=== PATIENT | female | born 1985 | race Caucasian/White ===

== ENCOUNTER 2017-10-28 11:06 | Emergency (ER) | payer OTHER ==
--- OUTSIDE RECORDS SUMMARY | 2017-10-28 11:08 | XMS REPORT | Clinical Summary ---
:1985 Author Organization [facility] Address [address] [place] [address] Care Team Providers Name Role Phone Krupa Steven DO Primary Care Provider Allergies Active Allergy Reactions Severity Noted Date Comments Propoxyphene Other (See Comments) 11/06/2016 Causes flu like N-Acetaminophen symptoms Current Medications Prescription Sig. Disp. Refills Start Date End Date Status omeprazole (PriLOSEC) 10 Take 10 mg by Active MG capsule mouth daily. Active Problems Problem Noted Date Epigastric pain 11/09/2016 Last Assessment & Plan: I spoke to Dr. gutierres her project development manager who is also unclear for the etiology of the patient's abdominal pain. I will order an ultrasound as well as an upper GI and a urine drug screen due to her history. Weight gain following gastric bypass surgery 11/06/2016 Last Assessment & Plan: I spoke to Dr. Gutierres, her project development manager, who is also unsure for the etiology of the patient's abdominal pain. I will obtain an upper GI study as well as an abdominal ultrasound. I will also obtain a urine drug screen. The patient will be contacted once these results come back. Encounters Date Type Specialty Care Team Description 11/14/2016 Telephone General Surgery Norma Carey PA 11/11/2016 Lab Lab Zeyad Aranda MD Weight gain following gastric bypass surgery 11/11/2016 Hospital Encounter Radiology Zeyad Aranda MD Weight gain following gastric bypass surgery 11/06/2016 Office Visit General Surgery Zeyad Aranda MD Weight gain following gastric bypass surgery (Primary Dx); Epigastric pain after 10/27/2016 Family History Medical History Relation Name Comments Mental illness Brother Obesity Brother Mental illness Brother Mental illness Daughter Hernia Father Hypertension Father Prostate cancer Father COPD Mother Carpal tunnel syndrome Mother Heart disease Mother Hypertension Mother Mental illness Mother Obesity Mother Gallbladder disease Sister Relation Name Status Comments Brother Alive Brother Alive Daughter Alive Daughter Alive Father Alive Maternal Grandfather Alive Maternal Grandmother Mother Alive Paternal Grandfather Paternal Grandmother Sister Alive Son Alive Social History Tobacco Use Types Packs/Day Years Used Date Current Every Day Smoker Cigarettes 1 Smokeless Tobacco: Never Used Alcohol Use Drinks/Week oz/Week Comments No Sex Assigned at Date Recorded Not on file Last Filed Vital Signs Vital Sign Reading Time Taken Blood Pressure 177/102 11/06/2016 10:29 AM CDT Pulse 78 11/06/2016 10:29 AM CDT Temperature 36.4 C (97.6 F) 11/06/2016 10:29 AM CDT Respiratory Rate - - Oxygen Saturation - - Inhaled Oxygen Concentration - - Weight 93.8 kg (206 lb 11.2 oz) 11/06/2016 10:29 AM CDT Height 160 cm (5' 3") 11/06/2016 10:29 AM CDT Body Mass Index 36.62 11/06/2016 10:29 AM CDT Plan of Treatment Health Maintenance Due Date Last Done Comments PAP SMEAR 2004 INFLUENZA VACCINE 02/17/2018 Results FL UGI w Air Gluc HD Barium (11/11/2016 11:41 AM) Specimen Performing Laboratory [facility] [address] [place] [address] Narrative EXAMINATION:FL UGI W AIR GLUC HD BARIUM CLINICAL HISTORY:weight regain after sleeve gastrectomy COMPARISON:None. TECHNIQUE:UPPER GI SERIES was performed with thickened liquid barium FLUOROSCOPIC TIME:1.7 minutes and 14 spot fluoroscopic images IMPRESSION: 1.Esophagus:Esophagus is normal in course, caliber, contour, and contractility. No mucosal abnormality or fold thickening. 2.Gastroesophageal junction:Small sliding hiatus hernia. No gastroesophageal reflux identified. 3.Stomach:Normal appearance of the stomach status-post gastric sleeve resection with relative narrowing of the proximal and mid stomach and widening of the gastric antrum.. Stomach is normal in distensible. No gastroparesis or outlet obstruction. 4.Duodenum:Bulb and sweep are normal. The duodenal-jejunal junction is in the normal expected position. [facility]-[id number] Procedure Note Interface, Radiology Results Incoming - 11/11/2016 12:22 PM CDT EXAMINATION: FL UGI W AIR GLUC HD BARIUM CLINICAL HISTORY: weight regain after sleeve gastrectomy COMPARISON: None. TECHNIQUE: UPPER GI SERIES was performed with thickened liquid barium FLUOROSCOPIC TIME: 1.7 minutes and 14 spot fluoroscopic images IMPRESSION: 1. Esophagus: Esophagus is normal in course, caliber, contour, and contractility. No mucosal abnormality or fold thickening. 2. Gastroesophageal junction: Small sliding hiatus hernia. No gastroesophageal reflux identified. 3. Stomach: Normal appearance of the stomach status-post gastric sleeve resection with relative narrowing of the proximal and mid stomach and widening of the gastric antrum.. Stomach is normal in distensible. No gastroparesis or outlet obstruction. 4. Duodenum: Bulb and sweep are normal. The duodenal-jejunal junction is in the normal expected position. [facility]-[id number] Urine drugs of abuse screen (11/11/2016 3:14 AM) Component Value Ref Range Amphetamine screen, urine Negative Barbiturate screen, urine Negative Benzodiazepine screen, urine Negative Cannabinoid screen, urine Negative Cocaine screen, urine Negative Methadone metabolite (EDDP), urine Negative Opiates screen, urine Negative Oxycodone screen, urine Negative Phencyclidine screen, urine Negative Tricyclic screen, urine Negative Comment: Drug screen minimum concentration of detectability [id number] ng/mL Barbiturates 200 ng/mL Wmnyxjdtkijdfsl489 ng/mL Cmytukn484 ng/mL Ypefqzlzg338 ng/mL Vlvwcvx940 ng/mL Xbbxfsvcb563 ng/mL Phencyclidine 25 ng/mL Fsgkrmkdyfjb09 ng/mL Mdwclzrfja2274 ng/mL Negative test results indicates presumptive evidence of lack of clinically significant drug concentration in this urine specimen. Positive test results are presumptive evidence of clinically significant drug concentration in this urine specimen. Testing performed for medical purposes only. Specimen Performing Laboratory Urine [facility] DEPARTMENT OF PATHOLOGY AND GENOMIC MEDICINE [address] [place] [address] after 10/27/2016 Insurance Payer Benefit Plan / Group Subscriber ID Type Phone Address MEDICARE MEDICARE PART A AND B xxxxxxxxxx Medicare [place], [place] MEDICAID MEDICAID xxxxxxxxx Medicaid
[2017-10-28 11:58] LABS: Absolute Monocytes 0.4 K/uL (0.1-1.3); Absolute Neutrophil 5.1 K/uL (1.8-8.0); Basophils % 0.7 % (0-1.3); Eosinophils % 1.7 % (0-4.4); Hematocrit 39.6 % (36.0-45.0); Lymphocytes % 26.2 % (15.3-44.8); MCH 27.8 pg (27.0-35.0); MCV 83.2 fL (80-100); MPV 7.6 fL (7.6-11.3); Monocytes % 4.6 % (3.3-12.3); RBC Red Blood Cell Count 4.77 M/uL (3.86-4.86)
[2017-10-28 12:11] LABS: Bicarbonate 27 mEq/L (21-31); Glucose Level 120 mg/dL (65-120); Potassium 3.6 mEq/L (3.6-5.0); Sodium Level 137 mEq/L (135-145)
[2017-10-28 12:14] LABS: ALT/SGPT 12 IU/L (10-60); AST/SGOT 17 IU/L (10-42); Albumin 3.9 g/dL (3.2-5.5); Alkaline Phosphatase 94 IU/L (42-121); BUN Blood Urea Nitrogen 10 mg/dL (6-20); Bilirubin Total 0.5 mg/dL (0.3-1.2); Protein, Total 6.7 g/dL (6.0-8.3)
--- NOTE | 2017-10-28 12:22 | RAD REPORT ---
EXAM DESCRIPTION: RAD - Chest Single View - 10/28/2017 12:01 pm CLINICAL HISTORY: Chest pain. COMPARISON: 08-14-16 FINDINGS: Portable technique limits examination quality. The lungs are grossly clear. The heart is normal in size. No displaced fractures. IMPRESSION: No acute intrathoracic process suspected.
--- NOTE | 2017-10-28 12:36 | EKG ---
Test Date: 2017-10-28 Test Time: 11:25:34 Lime Hide Inspector: ABBY MEASUREMENT RESULTS: Intervals: Rate: 99 NJ: 126 QRSD: 80 QT: 344 QTc: 441 [place]: P: 48 NJ: 126 QRS: 59 T: 0 INTERPRETIVE STATEMENTS: Normal sinus rhythm T wave abnormality, consider inferior ischemia Abnormal ECG No previous ECG available for comparison Electronically Signed On 10-28-17 12:35:35 CDT by Edmund Darden
[2017-10-28 13:01] LABS: Urine Blood NEGATIVE (NEG); Urine Glucose NEGATIVE (NEG); Urine Protein NEGATIVE (NEG)
[2017-10-28] MEDS ORDERED: KETOROLAC 30 MG/ML INJ ONE (13:28)
--- NOTE | 2017-10-28 13:52 | ER ---
Nurse's Notes [facility] Name: Autumn Winter Age: 32 yrs Sex: Female : 1985 Arrival Date: 10/28/2017 Time: 11:07 Bed 14 Private MD: Byron Lubin Diagnosis: Chest pain, unspecified;Muscle spasm of back Presentation: 10/28 11:21 Presenting complaint: Patient states: " My chest started hurting yesterday. I have been ph having pain between my shoulder blades and last week it moved down my R arm and I am having a hard time gripping things." Pt also reports cough that began Thursday, states, " I am just feeling so tired, I fall asleep at random times." Denies N/V/D, also denies fever. Transition of care: patient was not received from another setting of care. Onset of symptoms was October 28, 2017. Care prior to arrival: None. 11:21 Method Of Arrival: Ambulatory ph 11:21 Acuity: KRISHAN 3 ph Triage Assessment: 11:31 General: Appears in no apparent distress. uncomfortable, Behavior is calm, cooperative, hj appropriate for age. Pain: Complains of pain in chest. Cardiovascular: Capillary refill < 3 seconds Patient's skin is warm and dry. 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 - Social history:: Smoking status: Patient uses tobacco products, smokes one-half pack cigarettes per day. Screenin:30 Abuse screen: Denies threats or abuse. Denies injuries from another. Nutritional hj screening: No deficits noted. Tuberculosis screening: No symptoms or risk factors identified. Fall Risk None identified. Assessment: 11:31 Pain: Pain began 1 day ago. hj 11:32 Pain: Pain radiates to left arm. hj 12:30 Reassessment: Patient and/or family updated on plan of care and expected duration. Pain hj level reassessed. Patient is alert, oriented x 3, equal unlabored respirations, skin warm/dry/pink. awaiting results;. 13:30 Reassessment: Patient and/or family updated on plan of care and expected duration. Pain hj level reassessed. Patient is alert, oriented x 3, equal unlabored respirations, skin warm/dry/pink. requyested for list of pain MD's. 14:09 Reassessment: provided with copies of pain MD's. Vital Signs: 11:25 BP 147 / 109; Pulse 100; Resp 18; Temp 97.7; Pulse Ox 98% on R/A; Weight 99.79 kg; ph Height 5 ft. 3 in. (160.02 cm); Pain 6/10; 12:35 BP 142 / 95; Pulse 95; Resp 18; Pulse Ox 100% on R/A; hj 13:30 BP 140 / 96; Pulse 97; Resp 18; Pulse Ox 100% on R/A; hj 14:07 BP 134 / 94; Pulse 90; Resp 18; Pulse Ox 100% on R/A; hj 11:25 Body Mass Index 38.97 (99.79 kg, 160.02 cm) ph ED Course: 11:07 Patient arrived in ED. as 11:07 Byron Lubin DO is Private Physician. as 11:25 Triage completed. ph 11:27 Arm band placed on. ph 11:28 Alon Soni, ROBERTO is Primary Nurse. hj 11:30 Liang Barba NP is PHCP. pm1 11:30 Jerry Samson MD is Attending Physician. pm1 11:31 Patient has correct armband on for positive identification. Placed in gown. Bed in low hj position. Call light in reach. Side rails up X 1. cardiac monitor technician on. Pulse ox on. NIBP on. 11:31 Patient maintains SpO2 saturation greater than 95% on room air. hj 11:41 EKG done, by emission technician. reviewed by Jerry Samson MD. at1 11:45 Initial lab(s) drawn, by me, sent to lab. Inserted saline lock: 22 gauge in right hj antecubital area, using aseptic technique. Blood collected. 11:49 Urine collected: clean catch specimen, clear. 5 11:50 Troponin (emerg Dept Use Only) Sent. 5 11:50 CBC with Diff Sent. 5 11:59 X-ray completed. Portable x-ray completed in exam room. Patient tolerated procedure la2 well. 12:00 XRAY Chest (1 view) In Process Unspecified. EDMS 14:06 No provider procedures requiring assistance completed. Patient did not have IV access hj during this emergency room visit. intact, bleeding controlled, No redness/swelling at site. Pressure dressing applied. Administered Medications: 13:24 Drug: TORadol 30 mg Route: IVP; Site: right antecubital; 13:31 Follow up: Response: No adverse reaction Outcome: 13:52 Discharge ordered by . pm1 14:06 Discharged to home ambulatory. 14:06 Condition: stable 14:06 Discharge instructions given to patient, Instructed on discharge instructions, follow up and referral plans. Demonstrated understanding of instructions, follow-up care. 14:09 Patient left the ED. Signatures: Dispatcher [employer] EDMya Good Amanda, vice president business development EKG Tat1 Demi Bourgeois RN RN Alon Soni RN RN Liang Barba, PAMELA FILM OR VIDEOTAPE EDITOR pm1 Salome Diaz [facility] [place] la2
--- NOTE | 2017-10-28 13:53 | EDPHYS ---
Physician Documentation [facility] Name: Autumn Winter Age: 32 yrs Sex: Female : 1985 Arrival Date: 10/28/2017 Time: 11:07 Bed 14 Private MD: Byron Lubin ED Physician Jerry Samson HPI: 10/28 13:30 This 32 yrs old Female presents to ER via Ambulatory with complaints of Chest pm1 Pain, Right Shoulder Pain. 13:30 The patient or guardian reports chest pain that is located primarily in the substernal pm1 area. The pain does not radiate. Patient with right sided back pain and right shoulder pain for 1 week. Patient with substernal chest pian for two days. Chest pain, back pain, and right shoulder pain have been constant.. 13:30 Associated signs and symptoms: Pertinent negatives: abdominal pain, diaphoresis, pm1 nausea, shortness of breath, vomiting. The chest pain is described as sharp. Duration: The patient or guardian reports a single episode, that is still ongoing. Modifying factors: The symptoms are alleviated by nothing. the symptoms are aggravated by deep breath, palpation of area, Movement of right arm. Severity of pain: in the emergency department the pain is unchanged. The patient has experienced similar episodes in the past, several times. 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 - Social history:: Smoking status: Patient uses tobacco products, smokes one-half pack cigarettes per day. ROS: 13:30 Constitutional: Negative for fever, chills, and weight loss, Eyes: Negative for injury, pm1 pain, redness, and discharge, ENT: Negative for injury, pain, and discharge, Neck: Negative for injury, pain, and swelling. 13:30 Respiratory: Negative for shortness of breath, cough, wheezing, and pleuritic chest pain, Abdomen/GI: Negative for abdominal pain, nausea, vomiting, diarrhea, and constipation, : Negative for injury, bleeding, discharge, and swelling. 13:30 Skin: Negative for injury, rash, and discoloration, Neuro: Negative for headache, weakness, numbness, tingling, and seizure. 13:30 Cardiovascular: Positive for chest pain, Negative for edema, orthopnea, palpitations, paroxysmal nocturnal dyspnea. 13:30 Back: Positive for of the right scapular area and right subscapular area, pain. 13:30 MS/extremity: Positive for pain, of the anterior aspect of right shoulder. Exam: 13:30 Constitutional: This is a well developed, well nourished patient who is awake, alert, pm1 and in no acute distress. Head/Face: Normocephalic, atraumatic. Eyes: Pupils equal round and reactive to light, extra-ocular motions intact. Lids and lashes normal. Conjunctiva and sclera are non-icteric and not injected. Cornea within normal limits. Periorbital areas with no swelling, redness, or edema. ENT: Nares patent. No nasal discharge, no septal abnormalities noted. Tympanic membranes are normal and external auditory canals are clear. Oropharynx with no redness, swelling, or masses, exudates, or evidence of obstruction, uvula midline. Mucous membranes moist. Neck: Trachea midline, no thyromegaly or masses palpated, and no cervical lymphadenopathy. Supple, full range of motion without nuchal rigidity, or vertebral point tenderness. No Meningismus. Chest/axilla: Normal chest wall appearance and motion. Nontender with no deformity. No lesions are appreciated. Cardiovascular: Regular rate and rhythm with a normal S1 and S2. No gallops, murmurs, or rubs. Normal PMI, no JVD. No pulse deficits. Respiratory: Lungs have equal breath sounds bilaterally, clear to auscultation and percussion. No rales, rhonchi or wheezes noted. No increased work of breathing, no retractions or nasal flaring. Abdomen/GI: Soft, non-tender, with normal bowel sounds. No distension or tympany. No guarding or rebound. No evidence of tenderness throughout. 13:30 Skin: Warm, dry with normal turgor. Normal color with no rashes, no lesions, and no evidence of cellulitis. MS/ Extremity: Pulses equal, no cyanosis. Neurovascular intact. Full, normal range of motion. 13:30 Back: muscle spasm, is appreciated in the right scapular area and right subscapular area. 13:30 Neuro: Orientation: is normal, Motor: moves all fours, Sensation: is normal, no obvious gross deficits, Gait: is steady, at a normal pace, without difficulty. Vital Signs: 11:25 BP 147 / 109; Pulse 100; Resp 18; Temp 97.7; Pulse Ox 98% on R/A; Weight 99.79 kg; ph Height 5 ft. 3 in. (160.02 cm); Pain 6/10; 12:35 BP 142 / 95; Pulse 95; Resp 18; Pulse Ox 100% on R/A; hj 13:30 BP 140 / 96; Pulse 97; Resp 18; Pulse Ox 100% on R/A; hj 14:07 BP 134 / 94; Pulse 90; Resp 18; Pulse Ox 100% on R/A; hj 11:25 Body Mass Index 38.97 (99.79 kg, 160.02 cm) ph MDM: 11:35 Patient medically screened. pm1 13:45 Data reviewed: vital signs. Data interpreted: Pulse oximetry: on room air is 98 %. pm1 Interpretation: normal. Counseling: I had a detailed discussion with the patient and/or guardian regarding: the historical points, exam findings, and any diagnostic results supporting the discharge/admit diagnosis, lab results, radiology results, the need for outpatient follow up, to return to the emergency department if symptoms worsen or persist or if there are any questions or concerns that arise at home. 10/28 11:38 Order name: CBC with Diff; Complete Time: 12:27 pm1 10/28 11:38 Order name: Troponin (emerg Dept Use Only); Complete Time: 12:27 pm1 10/28 11:38 Order name: XRAY Chest (1 view); Complete Time: 12:27 pm1 10/28 11:38 Order name: CMP; Complete Time: 12:27 pm1 10/28 11:55 Order name: Urine Dipstick--Ancillary (enter results); Complete Time: 13:20 mw2 10/28 11:55 Order name: Urine --Ancillary (enter results); Complete Time: 13:20 mw2 10/28 11:38 Order name: Urine Test (obtain specimen); Complete Time: 11:39 pm1 10/28 11:38 Order name: EKG; Complete Time: 11:39 pm1 10/28 11:38 Order name: Cardiac monitoring; Complete Time: 11:39 pm1 10/28 11:38 Order name: EKG - Nurse/Tech; Complete Time: 11:50 pm1 10/28 11:38 Order name: IV Saline Lock; Complete Time: 11:50 pm1 10/28 11:38 Order name: Labs collected and sent; Complete Time: 11:40 pm1 10/28 11:38 Order name: O2 Per Protocol; Complete Time: 11:40 pm1 10/28 11:38 Order name: O2 Sat Monitoring; Complete Time: 11:40 pm1 10/28 11:38 Order name: Urine Dipstick-Ancillary (obtain specimen); Complete Time: 11:40 pm1 Administered Medications: 13:24 Drug: TORadol 30 mg Route: IVP; Site: right antecubital; 13:31 Follow up: Response: No adverse reaction hj Disposition: 10/28/17 13:52 Discharged to Home. Impression: Chest pain, unspecified, Muscle spasm of back. - Condition is Stable. - Discharge Instructions: Back Pain, Adult, Nonspecific Chest Pain, Muscle Cramps and Spasms, Heat Therapy. - Medication Reconciliation Form, Thank You Letter form. - Follow up: Emergency Department; When: As needed; Reason: Worsening of condition. Follow up: Private Physician; When: 2 - 3 days; Reason: Recheck today's complaints, Continuance of care, Re-evaluation by your physician. - Problem is new. - Symptoms have improved. Addendum: 10/30/2017 07:30 Co-signature as Attending Physician, Jerry Samson MD I agree with the assessment and w a plan of care. Signatures: Dispatcher [employer] Demi Khanna RN RN Alon Cai RN RN hj Liang Barba, RECYCLING PROGRAM MANAGER RECYCLING PROGRAM MANAGER pm1 Jerry Samson MD MD ny
[2017-10-28 14:19] VITALS: BP 134/94; TEMP 97.7; O2SAT 100
== END 2017-10-28 14:09 | disposition home or self-care (01) ==
LOC: ER 11:06
DX: M62.830 Muscle spasm of back (principal); F17.210 Nicotine dependence, cigarettes, uncomplicated; Z88.6 Allergy status to analgesic agent; Z91.040 Latex allergy status; Z91.048 Other nonmedicinal substance allergy status
CPT/HCPCS: 36415; 71045; 80053; 81003; 81025; 84484; 85025; 93005; 96374; 99285

== ENCOUNTER 2018-05-30 21:26 | Emergency (ER) | payer OTHER ==
--- OUTSIDE RECORDS SUMMARY | 2018-05-30 21:28 | XMS REPORT | Clinical Summary ---
:1985 Author Organization [facility] Address [address] [place] [address] Care Team Providers Name Role Phone Krupa Steven DO Primary Care Provider Allergies Active Allergy Reactions Severity Noted Date Comments Propoxyphene Other (See Comments) 11/06/2016 Causes flu like N-Acetaminophen symptoms Medications Medication Sig Dispensed Refills Start Date End Date Status omeprazole (PriLOSEC) Take 10 mg by 0 Active 10 MG capsule mouth daily. Active Problems Problem Noted Date Epigastric pain 11/09/2016 Last Assessment & Plan: I spoke to Dr. 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 I will order an ultrasound as well as an upper GI and a urine drug screen due to her history. Weight gain following gastric bypass surgery 11/06/2016 Last Assessment & Plan: I spoke to Dr. Gutierres, her wool fleece sorter, who is also unsure for the etiology of the patient's abdominal pain. I will obtain an upper GI study as well as an abdominal ultrasound. I will also obtain a urine drug screen. The patient will be contacted once these results come back. Family History Medical History Relation Name Comments [...] Assigned at Date Recorded Not on file Job Start Date Occupation Industry Not on file Not on file Not on file Travel History Travel Start Travel End No recent travel history available. Last Filed Vital Signs Not on file Plan of Treatment Health Maintenance Due Date Last Done Comments CERVICAL CANCER SCREENING 2004 INFLUENZA VACCINE 02/17/2018 Results Not on fileafter 05/29/2017 Insurance Payer Benefit Plan / Group Subscriber ID Type Phone Address MEDICARE MEDICARE PART A AND B xxxxxxxxxx Medicare [place], [place] MEDICAID MEDICAID xxxxxxxxx Medicaid Advance Directives Patient has advance care planning documents on file. For more information, please contact:Jg Hopson[address] [place] [address]
[2018-05-30] MEDS ORDERED: NA CHLORIDE 0.9% 1,000 ML ONE (22:16)
[2018-05-30 22:18] LABS: Absolute Lymphocytes (CBC) 1.8 K/uL (0.7-4.9); Absolute Monocytes 0.3 K/uL (0.1-1.3); Absolute Neutrophil 4.3 K/uL (1.8-8.0); Basophils % 0.4 % (0-1.3); Eosinophils % 1.5 % (0-4.4); Hematocrit 33.2 % (36.0-45.0); Lymphocytes % 27.4 % (15.3-44.8); MCH 28.7 pg (27.0-35.0); MPV 7.6 fL (7.6-11.3); RBC Red Blood Cell Count 4.05 M/uL (3.86-4.86)
[2018-05-30 22:25] LABS: BUN Blood Urea Nitrogen 9 mg/dL (7-18); Bicarbonate 27 mmol/L (21-32); Glucose Level 96 mg/dL (74-106); Sodium Level 142 mmol/L (136-145)
[2018-05-30] MEDS ORDERED: CLINDAMYCIN 900MG/D5W 900 MG/50 ML IVPB IV ONE (23:03)
[2018-05-30] MEDS ORDERED: POTASSIUM 25 MEQ EFFERV TAB ONE (23:03)
--- NOTE | 2018-05-31 00:01 | ER ---
Nurse's Notes [facility] Name: Autumn Winter Age: 32 yrs Sex: Female : 1985 Arrival Date: 05/30/2018 Time: 21:30 Bed 18 Private MD: Diagnosis: Cellulitis of face;Dental Abscess Presentation: 05/30 21:31 Presenting complaint: Patient states: Abscess to right upper mouth for 2 days. Patient aj reports she started abx on Thursday for "a tooth infection.". Transition of care: patient was not received from another setting of care. Onset of symptoms was May 28, 2018. Risk Assessment: Do you want to hurt yourself or someone else? Patient reports no desire to harm self or others. Initial Sepsis Screen: Does the patient meet any 2 criteria? No. Patient's initial sepsis screen is negative. Does the patient have a suspected source of infection? No. Patient's initial sepsis screen is negative. Care prior to arrival: None. 21:31 Method Of Arrival: Ambulatory 21:31 Acuity: KRISHAN 3 aj Triage Assessment: 21:33 General: Appears in no apparent distress. comfortable, Behavior is calm, cooperative, aj appropriate for age. Pain: Complains of pain in right zygomatic area and right cheek. EENT: Poor dentition noted. Reports pain in right zygomatic area and right cheek. Neuro: Level of Consciousness is awake, alert, obeys commands, Oriented to person, place, time, situation, Appropriate for age. Respiratory: Airway is patent Respiratory effort is even, unlabored, Respiratory pattern is regular, symmetrical. Derm: Skin is intact, is healthy with good turgor, Skin is pink, warm \\T\\ dry. normal. 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 - Social history:: Smoking status: Patient uses tobacco products, smokes one pack cigarettes per day. - Ebola Screening: : Patient negative for fever greater than or equal to 101.5 degrees Fahrenheit, and additional compatible Ebola Virus Disease symptoms Patient denies exposure to infectious person Patient denies travel to an Ebola-affected area in the 21 days before illness onset No symptoms or risks identified at this time. Screenin:55 Abuse screen: Denies threats or abuse. Nutritional screening: No deficits noted. jd3 Tuberculosis screening: No symptoms or risk factors identified. Fall Risk Ambulatory Aid- None/Bed Rest/Nurse Assist (0 pts). Gait- Normal/Bed Rest/Wheelchair (0 pts) Mental Status- Oriented to own ability (0 pts). Total Anderson Fall Scale indicates No Risk (0-24 pts). Assessment: 21:52 General: Appears uncomfortable, Behavior is calm, cooperative, appropriate for age. jd3 Pain: Complains of pain in face and right cheek Quality of pain is described as sharp, tender. Neuro: Level of Consciousness is awake, alert, obeys commands, Oriented to person, place, time, situation, Appropriate for age. Cardiovascular: Capillary refill < 3 seconds Patient's skin is warm and dry. Respiratory: Airway is patent Respiratory effort is even, unlabored, Respiratory pattern is regular, symmetrical, Denies shortness of breath. GI: No signs and/or symptoms were reported involving the gastrointestinal system. : No signs and/or symptoms were reported regarding the genitourinary system. EENT: No signs and/or symptoms were reported regarding the EENT system. Derm: Skin is intact, Skin is dry, Skin is normal, Skin temperature is warm Wound noted gums Other: wound is red, swollen. pt reports tender to the touch. Musculoskeletal: Circulation, motion, and sensation intact. Range of motion: Swelling present in face and right cheek and right zygomatic area. 22:32 Reassessment: Patient appears in no apparent distress at this time. No changes from jd3 previously documented assessment. Patient and/or family updated on plan of care and expected duration. Pain level reassessed. Patient is alert, oriented x 3, equal unlabored respirations, skin warm/dry/pink. 23:22 Reassessment: Patient appears in no apparent distress at this time. No changes from jd3 previously documented assessment. Patient and/or family updated on plan of care and expected duration. Pain level reassessed. Patient is alert, oriented x 3, equal unlabored respirations, skin warm/dry/pink. 05/31 00:11 Reassessment: Patient appears in no apparent distress at this time. Patient and/or jd3 family updated on plan of care and expected duration. Pain level reassessed. Patient is alert, oriented x 3, equal unlabored respirations, skin warm/dry/pink. Patient states feeling better. Vital Signs: 05/30 21:33 BP 140 / 92; Pulse 93; Resp 18; Temp 99.2; Pulse Ox 97% on R/A; Weight 90.72 kg; Height aj 5 ft. 3 in. (160.02 cm); 22:32 BP 151 / 88; Pulse 70; Resp 16 S; Pulse Ox 98% on R/A; Pain 5/10; jd3 23:22 BP 152 / 95; Pulse 73; Resp 16 S; Pulse Ox 98% on R/A; jd3 21:33 Body Mass Index 35.43 (90.72 kg, 160.02 cm) ED Course: 21:30 Patient arrived in ED. am2 21:32 Triage completed. aj 21:33 Arm band placed on left wrist. Patient placed in an exam room. aj 21:36 Erwin Bear PA is PHCP. cp 21:36 Johnny Marte MD is Attending Physician. cp 21:51 Jed Sherwood, ROBERTO is Primary Nurse. jd3 21:55 Patient has correct armband on for positive identification. Bed in low position. Call jd3 light in reach. Side rails up X 1. Adult w/ patient. 22:03 Inserted saline lock: 20 gauge in right antecubital area, using aseptic technique. jd3 Blood collected. 22:20 CT Maxillofacial W/cont In Process Unspecified. EDMS 23:59 Samuel Gaines DDS is Referral Physician. cp 05/31 00:10 No provider procedures requiring assistance completed. IV discontinued, intact, jd3 bleeding controlled, No redness/swelling at site. Pressure dressing applied. Administered Medications: 05/30 22:30 Drug: NS 0.9% 1000 ml Route: IV; Rate: 1 bolus; Site: right antecubital; jd3 05/31 00:12 Follow up: IV Status: Completed infusion; IV Intake: 1000ml j 05/30 23:05 Drug: Clindamycin 900 mg Route: IVPB; Infused Over: 30 mins; Site: right antecubital; jd3 05/31 00:10 Follow up: Response: No adverse reaction; IV Status: Completed infusion; IV Intake: jd3 1000ml 05/30 23:05 Drug: Potassium Effervescent Tablet 50 mEq Route: PO; jd3 05/31 00:09 Follow up: Response: No adverse reaction jd3 00:09 Drug: Bactrim (160 mg-800 mg (DS) 1 tablet Route: PO; jd3 00:10 Follow up: Response: Medication administered at discharge. jd3 Intake: 00:10 IV: 1000ml; Total: 1000ml. jd3 00:12 IV: 1000ml; Total: 2000ml. jd3 Outcome: 00:00 Discharge ordered by MD. cp 00:11 Discharged to home ambulatory, with family. jd3 00:11 Condition: stable 00:11 Discharge instructions given to patient, Instructed on discharge instructions, follow up and referral plans. medication usage, Demonstrated understanding of instructions, follow-up care, medications, Prescriptions given X 3. 00:12 Patient left the ED. jd3 Signatures: Dispatcher [employer] EDMS Milady Frost, RN RN Erwin Alex PA PA Milady Sadler Jonathon, RN RN jd3
--- NOTE | 2018-05-31 00:02 | EDPHYS ---
Physician Documentation [facility] Name: Autumn Winter Age: 32 yrs Sex: Female : 1985 Arrival Date: 05/30/2018 Time: 21:30 Bed 18 Private MD: ED Physician Johnny Marte HPI: 05/30 21:47 This 32 yrs old Female presents to ER via Ambulatory with complaints of cp Abscess. 21:47 The patient presents with an abscess of the right upper jaw, the patient presents with cp a swollen area of the face. Onset: The symptoms/episode began/occurred yesterday. Associated signs and symptoms: Pertinent positives: discharge, drainage, Pertinent negatives: fever. Severity of symptoms: in the emergency department the symptoms are unchanged, despite home interventions. 21:47 Patient reports she is currently taking prescribed Amoxicillin since this past Thursday. 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 - Social history:: Smoking status: Patient uses tobacco products, smokes one pack cigarettes per day. - Ebola Screening: : Patient negative for fever greater than or equal to 101.5 degrees Fahrenheit, and additional compatible Ebola Virus Disease symptoms Patient denies exposure to infectious person Patient denies travel to an Ebola-affected area in the 21 days before illness onset No symptoms or risks identified at this time. ROS: 22:00 Constitutional: Negative for body aches, chills, fever, poor PO intake. cp 22:00 Eyes: Negative for injury, pain, redness, and discharge. cp 22:00 ENT: Positive for dental pain, Negative for drainage from ear(s), ear pain, sore throat, difficulty swallowing, difficulty handling secretions. 22:00 Cardiovascular: Negative for chest pain. 22:00 Respiratory: Negative for cough, shortness of breath, wheezing. 22:00 Abdomen/GI: Negative for abdominal pain, vomiting, diarrhea. 22:00 Skin: Positive for swelling, of the right cheek. 22:00 Neuro: Negative for altered mental status, headache, weakness. 22:00 All other systems are negative. Exam: 22:08 Constitutional: The patient appears in no acute distress, alert, awake, non-toxic, well cp developed, well nourished, uncomfortable. 22:08 Head/face: Noted is swelling, that is mild, of the right cheek, tenderness, that is cp mild, of the right cheek. 22:08 Eyes: Periorbital structures: appear normal, Pupils: equal, round, and reactive to light and accomodation, Extraocular movements: intact throughout, Conjunctiva: normal, no exudate, no injection, Sclera: no appreciated abnormality, Lids and lashes: appear normal, bilaterally. 22:08 ENT: External ear(s): are unremarkable, Ear canal(s): are normal, clear, TM's: bulging, is not appreciated, bilaterally, dullness, bilaterally, erythema, is not appreciated, bilaterally, Nose: is normal, Mouth: Lips: moist, Oral mucosa: moist, Gums: noted to have an abscess, reddened, swollen, on the gums, draining, Tongue: is normal, drooling, is not appreciated, Posterior pharynx: is normal, airway is patent, no erythema, no exudate, Dental exam: avulsion, diffusely, dental caries, that is severe, diffusely, fractured teeth are noted, diffusely, gum swelling, that is mild, diffusely, missing teeth, diffusely, pain, diffusely, Voice: is normal. 22:08 Neck: ROM/movement: is normal, is supple, without pain, no range of motions limitations, no meningismus, no nuchal rigidity. 22:08 Chest/axilla: Inspection: normal, Palpation: is normal, no crepitus, no tenderness. 22:08 Cardiovascular: Rate: normal, Rhythm: regular, JVD: is not appreciated. 22:08 Respiratory: the patient does not display signs of respiratory distress, Respirations: normal, no use of accessory muscles, no retractions, no splinting, no tachypnea, Breath sounds: are clear throughout, no decreased breath sounds, no stridor, no wheezing. 22:08 Abdomen/GI: Exam negative for discomfort, distension, guarding, Inspection: abdomen appears normal. 22:08 Skin: cellulitis, that is mild, on the right facial cheek. 22:08 Neuro: Orientation: to person, place \T\ time. Mentation: is normal, Cerebellar function: is grossly normal, Motor: moves all fours, strength is normal, Sensation: no obvious gross deficits. Vital Signs: 21:33 BP 140 / 92; Pulse 93; Resp 18; Temp 99.2; Pulse Ox 97% on R/A; Weight 90.72 kg; Height aj 5 ft. 3 in. (160.02 cm); 22:32 BP 151 / 88; Pulse 70; Resp 16 S; Pulse Ox 98% on R/A; Pain 5/10; jd3 23:22 BP 152 / 95; Pulse 73; Resp 16 S; Pulse Ox 98% on R/A; jd3 21:33 Body Mass Index 35.43 (90.72 kg, 160.02 cm) aj MDM: 21:36 Patient medically screened. cp 22:00 Differential diagnosis: abscess, cellulitis, osteomyelitis. cp 05/31 00:00 Data reviewed: vital signs, nurses notes, lab test result(s), radiologic studies, CT cp scan, and as a result, I will discharge patient. 00:00 Counseling: I had a detailed discussion with the patient and/or guardian regarding: the cp historical points, exam findings, and any diagnostic results supporting the discharge/admit diagnosis, lab results, radiology results, the need for outpatient follow up, a dentist, to return to the emergency department if symptoms worsen or persist or if there are any questions or concerns that arise at home. Response to treatment: the patient's symptoms have mildly improved after treatment, VSS. Will have patient stop oral Amoxicillin and start oral clindamycin and Bactrim. Patient has pain medications prescribed by dentist. Will discharge to home for continued monitoring. 05/30 21:51 Order name: CBC with Diff; Complete Time: 22:36 cp 05/30 21:51 Order name: BMP; Complete Time: 22:36 cp 05/30 21:51 Order name: CT Maxillofacial W/cont cp 05/30 21:51 Order name: IV; Complete Time: 22:10 cp Administered Medications: 05/30 22:30 Drug: NS 0.9% 1000 ml Route: IV; Rate: 1 bolus; Site: right antecubital; jd3 05/31 00:12 Follow up: IV Status: Completed infusion; IV Intake: 1000ml jd3 05/30 23:05 Drug: Clindamycin 900 mg Route: IVPB; Infused Over: 30 mins; Site: right antecubital; jd3 05/31 00:10 Follow up: Response: No adverse reaction; IV Status: Completed infusion; IV Intake: jd3 1000ml 05/30 23:05 Drug: Potassium Effervescent Tablet 50 mEq Route: PO; jd3 05/31 00:09 Follow up: Response: No adverse reaction jd3 00:09 Drug: Bactrim (160 mg-800 mg (DS) 1 tablet Route: PO; jd3 00:10 Follow up: Response: Medication administered at discharge. jd3 Disposition: 00:30 Chart complete. cp 00:59 Co-signature as Attending Physician, Johnny Marte MD. rn Disposition: 05/31/18 00:00 Discharged to Home. Impression: Cellulitis of face, Dental Abscess. - Condition is Stable. - Discharge Instructions: Cellulitis, Adult. - Prescriptions for Anaprox DS 550 mg Oral Tablet - take 1 tablet by ORAL route every 12 hours As needed; 20 tablet. Clindamycin HCl 300 mg Oral Capsule - take 1 capsule by ORAL route every 6 hours for 10 days; 40 capsule. Bactrim DS 800- 160 mg Oral Tablet - take 1 tablet by ORAL route every 12 hours for 10 days; 20 tablet. - Medication Reconciliation Form, Thank You Letter, Antibiotic Education, Prescription Opioid Use form. - Follow up: Samuel Gaines DDS; When: 2 - 3 days; Reason: Recheck today's complaints. - Problem is new. - Symptoms have improved. Signatures: Dispatcher [employer] Milady Jordan RN RN aj Nieto, Roman, MD MD rn Page, Corey, PA PA cp Davies, Jonathon, RN RN jd3 Corrections: (The following items were deleted from the chart) 00:12 00:00 05/31/2018 00:00 Discharged to Home. Impression: Cellulitis of face; Dental jd3 Abscess. Condition is Stable. Forms are Medication Reconciliation Form, Thank You Letter, Antibiotic Education, Prescription Opioid Use. Follow up: Samuel Gaines; When: 2 - 3 days; Reason: Recheck today's complaints. Problem is new. Symptoms have improved. cp
[2018-05-31] MEDS ORDERED: SMZ./TMP. 800/160 MG TABLET ONE (00:09)
--- NOTE | 2018-05-31 07:48 | RAD REPORT ---
EXAM DESCRIPTION: CT - Maxillofacial W/Cont - 05/30/2018 10:20 pm CLINICAL HISTORY: Right-sided facial swelling, possible abscess A preliminary report was provided at the time of the study and reviewed prior to final report. COMPARISON: None. TECHNIQUE: Axial 2 millimeter thick images of the facial bones obtained with sagittal and coronal re formatted images generated and reviewed. The CT scan was performed using dose optimization techniques as appropriate to a performed exam incl uding one or more of the following: Automated exposure control, adjustment of the mA and/or kV accord ing to patient size (this includes techniques or standardized protocols for targeted exams where dose is matched to indication/reason for exam) and use of iterative reconstruction technique. FINDINGS: The limited intracranial portion of the examination is unremarkable. Mastoid air cells and paranasal sinuses are clear. No globe or orbital content abnormality. No facial bone fracture. Condyles of the mandible are normally positioned. There is lucent or lytic change in the right-side maxilla 8 mm lateral of midline. Outer cortex is di srupted. There is adjacent edematous/ inflammatory stranding. No defined abscess soft tissue seen. De ntal caries seen in the bilateral maxillary molars. IMPRESSION: Periodontal disease is present with infectious lucent or lytic change to the right side maxilla 8 mm lateral of midline. Outer cortex is disrupted. Adjacent infectious/ inflammatory soft tissue changes without a focal soft tissue abscess. Caries are present in bilateral maxillary molars. No other site of acute bone finding. Sinuses and mastoid air cells are clear.
== END 2018-05-31 00:12 | disposition home or self-care (01) ==
LOC: ER 21:26
DX: K04.7 Periapical abscess without sinus (principal); L03.211 Cellulitis of face; F17.210 Nicotine dependence, cigarettes, uncomplicated; Z79.2 Long term (current) use of antibiotics
CPT/HCPCS: 36415; 70487; 80048; 85025; 96361; 96365; 99284; J7030; Q9967

== ENCOUNTER 2019-03-11 09:39 | Emergency (ER) | payer OTHER ==
--- OUTSIDE RECORDS SUMMARY | 2019-03-11 09:47 | XMS REPORT ---
:1985 Author Organization e[employer]Works Care Team Providers Name Role Phone Tristian Byron Provider Role Unavailable Allergies No Known Allergies Problems Problem Type Condition Code Onset Dates Condition Status Problem Allergic rhinitis, seasonal J30.2 Active Problem Nicotine use disorder F17.200 Active Assessment Allergic rhinitis J30.9 Active Problem Vitamin D deficiency E55.9 Active Problem Insomnia G47.00 Active Problem Allergic rhinitis, unspecified J30.9 Active seasonality, unspecified trigger Problem Depression with anxiety F41.8 Active Problem Fibroid, uterine D25.9 Active Problem Fibromyalgia M79.7 Active Problem Abnormal weight gain R63.5 Active Medications Medication Code Code Instructions Start End Status Dosage System Date Date Lexapro [facility] 84595412143 20 MG Orally Active 0.5 tablet Once a day Duexis [facility] 64827162582 800-26.6 MG Active 1 tablet Orally Three times a day PRN PAIN Flonase Allergy [facility] 14779673577 50 MCG/ACT Active 1 spray in Relief Nasally Once a each day nostril Zyrtec Allergy [facility] 47237854958 10 MG Orally Active 1 tablet Once a day Pantoprazole [facility] 86930700301 40 MG Orally Active 1 tablet Sodium Once a day Ibuprofen [facility] 29618612052 800 MG Orally Active 1 tablet Three times a with food day or milk as needed Amitriptyline HCl [facility] 27672150895 25 MG Orally Active 1 tablet Once a day Results No Known Results Summary Purpose eClinicalWorks Submission
--- OUTSIDE RECORDS SUMMARY | 2019-03-11 09:47 | XMS REPORT ---
:1985 Author Organization [employer] Care Team Providers Name Role Phone Giuliana Lubinh Provider Role Unavailable Allergies, Adverse Reactions, Alerts Substance Reaction Event Type Darvocet-N 50 Info Not Available Drug Allergy Problems Problem Type Condition Code Onset Dates Condition Status Problem Allergic rhinitis, seasonal J30.2 Active Problem Nicotine use disorder F17.200 Active Problem Vitamin D deficiency E55.9 Active Problem Insomnia G47.00 Active Problem Allergic rhinitis, unspecified J30.9 Active seasonality, unspecified trigger Problem Depression with anxiety F41.8 Active Problem Fibroid, uterine D25.9 Active Problem Fibromyalgia M79.7 Active Problem Abnormal weight gain R63.5 Active Assessment Vitamin D deficiency E55.9 Active Assessment Elevated BP without diagnosis of R03.0 Active hypertension Assessment Acute low back pain, unspecified M54.5 Active back pain laterality, with sciatica presence unspecified Assessment Nicotine use disorder F17.200 Active Assessment Fibromyalgia M79.7 Active Assessment Allergic rhinitis J30.9 Active Assessment Insomnia G47.00 Active Assessment Depression with anxiety F41.8 Active Medications Medication Code Code Instructions Start End Status Dosage System Date Date Amitriptyline HCl [facility] 42189515288 25 MG Orally Active 1 tablet Once a day Duexis [facility] 26769962138 800-26.6 MG Active 1 tablet Orally Three times a day PRN PAIN Ibuprofen ND 06882310999 800 MG Orally Active 1 tablet Three times a with food day or milk as needed Zyrtec Allergy ND 25627584751 10 MG Orally Active 1 tablet Once a day Flonase Allergy ND 37275880657 50 MCG/ACT Active 1 spray in Relief Nasally Once a each day nostril Lexapro [facility] 78860611424 20 MG Orally Active 0.5 tablet Once a day Pantoprazole [facility] 17990546136 40 MG Orally Active 1 tablet Sodium Once a day Results No Known Results Summary Purpose [employer]ClinicalWorks Submission
--- OUTSIDE RECORDS SUMMARY | 2019-03-11 09:47 | XMS REPORT ---
:1985 Author Organization [employer] Care Team Providers Name Role Phone LubinByron Provider Role Unavailable Allergies, Adverse Reactions, Alerts Substance Reaction Event Type Darvocet-N 50 Info Not Available Drug Allergy Problems Problem Type Condition Code Onset Dates Condition Status Assessment Acute non-recurrent maxillary J01.00 Active sinusitis Problem Nicotine use disorder F17.200 Active Assessment Upper respiratory tract infection, J06.9 Active unspecified type Problem Insomnia G47.00 Active Problem Fibromyalgia M79.7 Active Problem Vitamin D deficiency E55.9 Active Problem Fibroid, uterine D25.9 Active Problem Allergic rhinitis, seasonal J30.2 Active Problem Abnormal weight gain R63.5 Active Problem Depression with anxiety F41.8 Active Medications Medication Code Code Instructions Start End Date Status Dosage System Date Claritin [facility] 72522409533 10 MG Orally Active 1 tablet Once a day Azithromycin ND 99091514310 250 MG Orally Aug 18, Aug 23, Active 2 tablets Once a day 2018 2018 on the first day, then 1 tablet daily for 4 days Flonase Allergy ND 25766783584 50 MCG/ACT Active 1 spray in Relief Nasally Once a each day nostril Ibuprofen ND 88564736994 800 MG Orally Active 1 tablet Three times a with food day or milk as needed Amitriptyline ND 28689498174 25 MG Orally Active 1 tablet HCl Once a day Lexapro [facility] 84988398825 20 MG Orally Active 0.5 tablet Once a day Duexis [facility] 17011022073 800-26.6 MG Jul 28October Active 1 tablet Orally Three 2018 times a day PRN PAIN Pantoprazole [facility] 82033218878 40 MG Orally Active 1 tablet Sodium Once a day Results No Known Results Summary Purpose eClinicalWorks Submission
--- OUTSIDE RECORDS SUMMARY | 2019-03-11 09:47 | XMS REPORT ---
[...] Dosage System Date Date Amitriptyline HCl [facility] 05250491822 25 MG Orally Active 1 tablet Once a day Flonase Allergy [facility] 56887116310 50 MCG/ACT Active 1 spray in Relief Nasally Once a each day nostril Pantoprazole [facility] 56834941157 40 MG Orally Active 1 tablet Sodium Once a day Duexis [facility] 89565261552 800-26.6 MG Active 1 tablet Orally Three times a day PRN PAIN Lexapro ND 29977947854 20 MG Orally Active 0.5 tablet Once a day Ibuprofen ND 65962031978 800 MG Orally Active 1 tablet Three times a with food day or milk as needed Zyrtec Allergy [facility] 85862899451 10 MG Orally Active 1 tablet Once a day Results No Known Results Summary Purpose eClinicalWorks Submission
--- OUTSIDE RECORDS SUMMARY | 2019-03-11 09:47 | XMS REPORT ---
[...] Start End Status Dosage System Date Date Flonase Allergy [facility] 05548040974 50 MCG/ACT Active 1 spray in Relief Nasally Once a each day nostril Duexis [facility] 94386153985 800-26.6 MG Active 1 tablet Orally Three times a day PRN PAIN Zyrtec Allergy [facility] 62299691923 10 MG Orally Active 1 tablet Once a day Amitriptyline HCl [facility] 00886236683 25 MG Orally Active 1 tablet Once a day Ibuprofen ND 37051840306 800 MG Orally Active 1 tablet Three times a with food day or milk as needed Lexapro [facility] 45557638404 20 MG Orally Active 0.5 tablet Once a day Pantoprazole [facility] 72106568559 40 MG Orally Active 1 tablet Sodium Once a day Results No Known Results Summary Purpose eClinicalWorks Submission
--- OUTSIDE RECORDS SUMMARY | 2019-03-11 09:47 | XMS REPORT ---
:1985 Author Organization eClinicalWorks Care Team Providers Name Role Phone Byron Lubin Provider Role Unavailable Allergies, Adverse Reactions, Alerts Substance Reaction Event Type Darvocet-N 50 Info Not Available Drug Allergy Problems Problem Type Condition Code Onset Dates Condition Status Assessment Depression with anxiety F41.8 Active Problem Nicotine use disorder F17.200 Active Problem Insomnia G47.00 Active Problem Fibromyalgia M79.7 Active Problem Vitamin D deficiency E55.9 Active Problem Fibroid, uterine D25.9 Active Problem Allergic rhinitis, seasonal J30.2 Active Problem Abnormal weight gain R63.5 Active Problem Depression with anxiety F41.8 Active Assessment Elevated BP without diagnosis of R03.0 Active hypertension Assessment History of dental abscess Z87.19 Active Assessment Insomnia G47.00 Active Assessment Vitamin D deficiency E55.9 Active Assessment Nicotine use disorder F17.200 Active Medications Medication Code Code Instructions Start End Date Status Dosage System Date Flonase Allergy [facility] 17803627406 50 MCG/ACT Active 1 spray in Relief Nasally Once a each day nostril Ibuprofen ND 36308353056 800 MG Orally Active 1 tablet Three times a with food day or milk as needed Claritin [facility] 85817436937 10 MG Orally Active 1 tablet Once a day Lexapro ND 26265085481 20 MG Orally Active 0.5 tablet Once a day Amoxicillin ND 61702278664 500 MG Orally Active 1 capsule every 12 hrs Duexis [facility] 43589321242 800-26.6 MG Jul 28October Active 1 tablet Orally Three 2018 times a day PRN PAIN Pantoprazole [facility] 22038378591 40 MG Orally Active 1 tablet Sodium Once a day Amitriptyline ND 16928719112 25 MG Orally Active 1 tablet HCl Once a day Results No Known Results Summary Purpose eClinicalWorks Submission
--- OUTSIDE RECORDS SUMMARY | 2019-03-11 09:47 | XMS REPORT ---
:1985 Author Organization eClinicalWorks Care Team Providers Name Role Phone Steven, Na Provider Role Unavailable Allergies No Known Allergies [...] Status Dosage System Date Date Amitriptyline HCl [facility] 87959372408 25 MG Orally Active 1 tablet Once a day Pantoprazole [facility] 41148023767 40 MG Orally Active 1 tablet Sodium Once a day Duexis [facility] 59321027716 800-26.6 MG Active 1 tablet Orally Three times a day PRN PAIN Flonase Allergy [facility] 03339274531 50 MCG/ACT Active 1 spray in Relief Nasally Once a each day nostril Zyrtec Allergy [facility] 04487286208 10 MG Orally Active 1 tablet Once a day Ibuprofen ND 88798628383 800 MG Orally Active 1 tablet Three times a with food day or milk as needed Lexapro [facility] 31569506354 20 MG Orally Active 0.5 tablet Once a day Results No Known Results Summary Purpose eClinicalWorks Submission
--- OUTSIDE RECORDS SUMMARY | 2019-03-11 09:47 | XMS REPORT ---
[...] Status Dosage System Date Date Flonase Allergy [facility] 66247605191 50 MCG/ACT Active 1 spray in Relief Nasally Once a each day nostril Pantoprazole [facility] 77603643771 40 MG Orally Active 1 tablet Sodium Once a day Duexis [facility] 85053747305 800-26.6 MG Active 1 tablet Orally Three times a day PRN PAIN Ibuprofen ND 83223899644 800 MG Orally Active 1 tablet Three times a with food day or milk as needed Zyrtec Allergy [facility] 72122671427 10 MG Orally Active 1 tablet Once a day Amitriptyline HCl ND 45679467821 25 MG Orally Active 1 tablet Once a day Lexapro [facility] 80447974218 20 MG Orally Active 0.5 tablet Once a day Results No Known Results Summary Purpose eClinicalWorks Submission
--- OUTSIDE RECORDS SUMMARY | 2019-03-11 09:47 | XMS REPORT ---
:1985 Author Organization eClinicalWorks Care Team Providers Name Role Phone Tristian Byron Provider Role Unavailable Allergies, Adverse Reactions, Alerts [...] Start End Date Status Dosage System Date Lexapro [facility] 66007486006 20 MG Orally Active 0.5 tablet Once a day Amitriptyline ND 45235707616 25 MG Orally Active 1 tablet HCl Once a day Duexis [facility] 84407353783 800-26.6 MG Jul 28October Active 1 tablet Orally Three 2018 times a day PRN PAIN Flonase Allergy ND 23777454959 50 MCG/ACT Active 1 spray in Relief Nasally Once a each day nostril Claritin ND 81859778481 10 MG Orally Active 1 tablet Once a day Ibuprofen ND 62747145346 800 MG Orally Active 1 tablet Three times a with food day or milk as needed Pantoprazole [facility] 59433870977 40 MG Orally Active 1 tablet Sodium Once a day Results No Known Results Summary Purpose eClinicalWorks Submission
--- OUTSIDE RECORDS SUMMARY | 2019-03-11 09:47 | XMS REPORT ---
:1985 Author Organization eClinicalWorks Care Team Providers Name Role Phone Tristian Byron Provider Role Unavailable Allergies, Adverse Reactions, Alerts Substance Reaction Event Type Darvocet-N 50 Info Not Available Drug Allergy Problems Problem Type Condition Code Onset Dates Condition Status Problem Allergic rhinitis, seasonal J30.2 Active Problem Nicotine use disorder F17.200 Active Assessment Allergic rhinitis, unspecified J30.9 Active seasonality, unspecified trigger Problem Vitamin D deficiency E55.9 Active Problem Insomnia G47.00 Active Problem Allergic rhinitis, unspecified J30.9 Active seasonality, unspecified trigger Problem Depression with anxiety F41.8 Active Problem Fibroid, uterine D25.9 Active Problem Fibromyalgia M79.7 Active Problem Abnormal weight gain R63.5 Active Medications Medication Code Code Instructions Start End Date Status Dosage System Date Ibuprofen [facility] 11186043192 800 MG Orally Active 1 tablet Three times a with food day or milk as needed Lexapro ND 42055291156 20 MG Orally Active 0.5 tablet Once a day Duexis [facility] 28895161597 800-26.6 MG Jul 28October Active 1 tablet Orally Three 2018 times a day PRN PAIN Claritin ND 80573550916 10 MG Orally Active 1 tablet Once a day Flonase Allergy ND 27692269344 50 MCG/ACT Active 1 spray in Relief Nasally Once a each day nostril Amitriptyline ND 98466062381 25 MG Orally Active 1 tablet HCl Once a day Pantoprazole [facility] 21104391563 40 MG Orally Active 1 tablet Sodium Once a day Results No Known Results Summary Purpose eClinicalWorks Submission
--- OUTSIDE RECORDS SUMMARY | 2019-03-11 09:48 | XMS REPORT ---
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 Active Problem Allergic rhinitis, unspecified J30.9 Active seasonality, unspecified trigger Problem Increased sleeping G47.10 Active Problem Fibromyalgia M79.7 Active Problem Abnormal weight gain R63.5 Active Problem Vitamin D deficiency E55.9 Active Problem Insomnia G47.00 Active Medications Medication Code Code Instructions Start End Status Dosage System Date Date Pantoprazole [facility] 27810425062 40 MG Orally Active 1 tablet Sodium Once a day Duloxetine HCl ND 74114109576 30 MG Orally February 08, Active 1 capsule Once a day 2018 Ibuprofen ND 56435652346 800 MG Orally Active 1 tablet Three times a with food day or milk as needed Flonase Allergy [facility] 34098794862 50 MCG/ACT Active 1 spray in Relief Nasally Once a each day nostril Lexapro [facility] 24599884401 20 MG Orally Active 0.5 tablet Once a day Zyrtec Allergy [facility] 83479539163 10 MG Orally Active 1 tablet Once a day Duexis [facility] 14028303231 800-26.6 MG Active 1 tablet Orally Three times a day PRN PAIN Amitriptyline HCl ND 80284509179 25 MG Orally Active 1 tablet Once a day Results No Known Results Summary Purpose eClinicalWorks Submission
--- OUTSIDE RECORDS SUMMARY | 2019-03-11 09:48 | XMS REPORT ---
[...] Start End Status Dosage System Date Date Ibuprofen [facility] 14997987985 800 MG Orally Active 1 tablet Three times a with food day or milk as needed Duexis [facility] 48407988761 800-26.6 MG Mar 12, Active 1 tablet Orally Three 2019 times a day PRN PAIN Zyrtec Allergy [facility] 66840469219 10 MG Orally Active 1 tablet Once a day Amitriptyline HCl ND 04905573463 25 MG Orally Active 1 tablet Once a day Flonase Allergy ND 68366218972 50 MCG/ACT Active 1 spray in Relief Nasally Once a each day nostril Lexapro [facility] 91132936923 20 MG Orally Active 0.5 tablet Once a day Pantoprazole [facility] 55008902190 40 MG Orally Active 1 tablet Sodium Once a day Results No Known Results Summary Purpose eClinicalWorks Submission
--- OUTSIDE RECORDS SUMMARY | 2019-03-11 09:48 | XMS REPORT ---
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.018 Active Problem Allergic rhinitis, unspecified J30.9 Active seasonality, unspecified trigger Problem Increased sleeping G47.10 Active Problem Fibromyalgia M79.7 Active Problem Abnormal weight gain R63.5 Active Problem Vitamin D deficiency E55.9 Active Problem Insomnia G47.00 Active Assessment Fibromyalgia M79.7 Active Assessment Insomnia G47.00 Active Assessment Vitamin D deficiency E55.9 Active Assessment Elevated BP without diagnosis of R03.0 Active hypertension Assessment Depression with anxiety F41.8 Active Assessment Acute pain of right shoulder M25.511 Active Assessment Nicotine use disorder F17.200 Active Assessment Allergic rhinitis J30.9 Active Problem Nicotine use disorder F17.200 Active Medications Medication Code Code Instructions Start End Status Dosage System Date Date Zyrtec Allergy [facility] 05497036468 10 MG Orally Active 1 tablet Once a day Amitriptyline HCl ND 50013112456 25 MG Orally Active 1 tablet Once a day Ibuprofen ND 42866387888 800 MG Orally Active 1 tablet Three times a with food day or milk as needed Pantoprazole [facility] 96165912445 40 MG Orally Active 1 tablet Sodium Once a day Lexapro ND 25358453497 20 MG Orally Active 0.5 tablet Once a day Duexis [facility] 03184043579 800-26.6 MG Active 1 tablet Orally Three times a day PRN PAIN Duloxetine HCl ND 40179732494 30 MG Orally Active 1 capsule Once a day Flonase Allergy ND 77283329873 50 MCG/ACT Active 1 spray in Relief Nasally Once a each day nostril Results No Known Results Summary Purpose eClinicalWorks Submission
--- OUTSIDE RECORDS SUMMARY | 2019-03-11 09:48 | XMS REPORT ---
[...] End Status Dosage System Date Date Lexapro [facility] 15311760321 20 MG Orally Active 0.5 tablet Once a day Duexis [facility] 75004711052 800-26.6 MG Active 1 tablet Orally Three times a day PRN PAIN Flonase Allergy ND 87482775441 50 MCG/ACT Active 1 spray in Relief Nasally Once a each day nostril Ibuprofen ND 92523976709 800 MG Orally Active 1 tablet Three times a with food day or milk as needed Amitriptyline HCl ND 88766651999 25 MG Orally Active 1 tablet Once a day Duloxetine HCl ND 01692854754 30 MG Orally February 08, Active 1 capsule Once a day 2018 Zyrtec Allergy ND 95679156722 10 MG Orally Active 1 tablet Once a day Pantoprazole [facility] 07514204650 40 MG Orally Active 1 tablet Sodium Once a day Results No Known Results Summary Purpose eClinicalWorks Submission
--- OUTSIDE RECORDS SUMMARY | 2019-03-11 09:48 | XMS REPORT ---
[...] E55.9 Active Problem Insomnia G47.00 Active Assessment Pain of left leg M79.605 Active Assessment Allergic rhinitis, unspecified J30.9 Active seasonality, unspecified trigger Assessment Pain in right leg M79.604 Active Problem Nicotine use disorder F17.200 Active Medications Medication Code Code Instructions Start End Status Dosage System Date Date Ibuprofen ND 97565384176 800 MG Orally Active 1 tablet Three times a with food day or milk as needed Pantoprazole [facility] 98560695654 40 MG Orally Active 1 tablet Sodium Once a day Amitriptyline HCl ND 26434864422 25 MG Orally Active 1 tablet Once a day Flonase Allergy ND 68857255142 50 MCG/ACT Active 1 spray in Relief Nasally Once a each day nostril Duexis [facility] 69671987958 800-26.6 MG Active 1 tablet Orally Three times a day PRN PAIN Zyrtec Allergy [facility] 09887862866 10 MG Orally Active 1 tablet Once a day Lexapro ND 77621850520 20 MG Orally Active 0.5 tablet Once a day Results No Known Results Summary Purpose eClinicalWorks Submission
--- OUTSIDE RECORDS SUMMARY | 2019-03-11 09:48 | XMS REPORT ---
[...] Status Dosage System Date Date Amitriptyline HCl [facility] 47544370296 25 MG Orally Active 1 tablet Once a day Duexis [facility] 24637620556 800-26.6 MG Mar 12, Active 1 tablet Orally Three 2019 times a day PRN PAIN Pantoprazole [facility] 96218366644 40 MG Orally Active 1 tablet Sodium Once a day Lexapro ND 89207898706 20 MG Orally Active 0.5 tablet Once a day Zyrtec Allergy [facility] 30988590108 10 MG Orally Active 1 tablet Once a day Flonase Allergy [facility] 21244033277 50 MCG/ACT Active 1 spray in Relief Nasally Once a each day nostril Ibuprofen ND 55627324414 800 MG Orally Active 1 tablet Three times a with food day or milk as needed Results No Known Results Summary Purpose eClinicalWorks Submission
--- OUTSIDE RECORDS SUMMARY | 2019-03-11 09:48 | XMS REPORT ---
[...] Status Dosage System Date Date Amitriptyline HCl [facility] 75125441899 25 MG Orally Active 1 tablet Once a day Flonase Allergy [facility] 34270011938 50 MCG/ACT Active 1 spray in Relief Nasally Once a each day nostril Pantoprazole [facility] 50764204740 40 MG Orally Active 1 tablet Sodium Once a day Zyrtec Allergy [facility] 53695187744 10 MG Orally Active 1 tablet Once a day Lexapro [facility] 64519849705 20 MG Orally Active 0.5 tablet Once a day Duloxetine HCl [facility] 13221102031 30 MG Orally February 08, Active 1 capsule Once a day [address] [facility] 29118933253 800 MG Orally Active 1 tablet Three times a with food day or milk as needed Duexis [facility] 64968098231 800-26.6 MG Active 1 tablet Orally Three times a day PRN PAIN Results No Known Results Summary Purpose eClinicalWorks Submission
--- OUTSIDE RECORDS SUMMARY | 2019-03-11 09:48 | XMS REPORT ---
:1985 Author Organization eClinicalWorks Care Team Providers Name Role Phone Lubin, [facility] Provider Role Unavailable Allergies No Known Allergies Problems Problem Type Condition Code Onset Dates Condition Status Problem Allergic rhinitis, seasonal J30.2 Active Problem Depression with anxiety F41.8 Active Problem Fibroid, uterine D25.9 Active Problem Nicotine use disorder F17.200 Active Problem Allergy to wheat Z91.018 Active Problem Allergic rhinitis, unspecified J30.9 Active seasonality, unspecified trigger Problem Increased sleeping G47.10 Active Problem Fibromyalgia M79.7 Active Problem Abnormal weight gain R63.5 Active Problem Vitamin D deficiency E55.9 Active Problem Insomnia G47.00 Active Medications No Known Medications Results No Known Results Summary Purpose eClinicalWorks Submission
--- OUTSIDE RECORDS SUMMARY | 2019-03-11 09:48 | XMS REPORT ---
:1985 Author Organization eClinicalWorks Care Team Providers Name Role Phone Tristian [facility] Provider Role Unavailable Allergies No Known Allergies [...] End Status Dosage System Date Date Lexapro [facility] 43311270480 20 MG Orally Active 0.5 tablet Once a day Duexis [facility] 89884838263 800-26.6 MG Mar 12, Active 1 tablet Orally Three 2019 times a day PRN PAIN Ibuprofen ND 18017731551 800 MG Orally Active 1 tablet Three times a with food day or milk as needed Amitriptyline HCl ND 50093332631 25 MG Orally Active 1 tablet Once a day Flonase Allergy [facility] 55125322386 50 MCG/ACT Active 1 spray in Relief Nasally Once a each day nostril Zyrtec Allergy [facility] 63519675829 10 MG Orally Active 1 tablet Once a day Pantoprazole [facility] 62461906325 40 MG Orally Active 1 tablet Sodium Once a day Results No Known Results Summary Purpose eClinicalWorks Submission
--- OUTSIDE RECORDS SUMMARY | 2019-03-11 09:48 | XMS REPORT ---
[...] without diagnosis of R03.0 Active hypertension Assessment Allergic rhinitis J30.9 Active Assessment Depression with anxiety F41.8 Active Assessment Acute low back pain, unspecified M54.5 Active back pain laterality, with sciatica presence unspecified Assessment Nicotine use disorder F17.200 Active Problem Nicotine use disorder F17.200 Active Medications Medication Code Code Instructions Start End Status Dosage System Date Date Zyrtec Allergy [facility] 40848558080 10 MG Orally Active 1 tablet Once a day Lexapro [facility] 55082842646 20 MG Orally Active 0.5 tablet Once a day Ibuprofen ND 12244220468 800 MG Orally Active 1 tablet Three times a with food day or milk as needed Pantoprazole [facility] 17787177694 40 MG Orally Active 1 tablet Sodium Once a day Duexis [facility] 85463919315 800-26.6 MG Active 1 tablet Orally Three times a day PRN PAIN Duloxetine HCl ND 30018981523 30 MG Orally February 08, Active 1 capsule Once a day 2018 Amitriptyline HCl ND 07715092358 25 MG Orally Active 1 tablet Once a day Flonase Allergy [facility] 87485888890 50 MCG/ACT Active 1 spray in Relief Nasally Once a each day nostril Results No Known Results Summary Purpose eClinicalWorks Submission
--- OUTSIDE RECORDS SUMMARY | 2019-03-11 09:48 | XMS REPORT ---
[...] Dosage System Date Date Flonase Allergy [facility] 82996433898 50 MCG/ACT Active 1 spray in Relief Nasally Once a each day nostril Pantoprazole [facility] 34166223893 40 MG Orally Active 1 tablet Sodium Once a day Zyrtec Allergy [facility] 39578716508 10 MG Orally Active 1 tablet Once a day Amitriptyline HCl ND 14367023859 25 MG Orally Active 1 tablet Once a day Lexapro [facility] 74996993179 20 MG Orally Active 0.5 tablet Once a day Ibuprofen [facility] 43844783301 800 MG Orally Active 1 tablet Three times a with food day or milk as needed Duexis [facility] 47254921867 800-26.6 MG Mar 12, Active 1 tablet Orally Three 2019 times a day PRN PAIN Results No Known Results Summary Purpose eClinicalWorks Submission
--- OUTSIDE RECORDS SUMMARY | 2019-03-11 09:48 | XMS REPORT ---
:1985 Author Organization eClinicalWorks Care Team Providers Name Role Phone Lubin, [facility] Provider Role Unavailable Allergies No Known Allergies [...] Problem Abnormal weight gain R63.5 Active Medications No Known Medications Results No Known Results Summary Purpose eClinicalWorks Submission
--- NOTE | 2019-03-11 10:47 | ER ---
Nurse's Notes [facility] Name: Autumn Winter Age: 33 yrs Sex: Female : 1985 Arrival Date: 03/11/2019 Time: 09:40 Bed 19 Private MD: Diagnosis: Pain in right shoulder Presentation: 03/11 09:57 Presenting complaint: Patient states: R shoulder pain x 5 days, denies injury. Patient ss was seen by her doctor, had XRAYs obtained and was told to follow up with ortho. Patient has yet to received results from her XRAYs, and does not have an appointment until next Thursday with ortho and states she just cannot take the pain anymore. Transition of care: patient was not received from another setting of care. Onset of symptoms was March 06, 2019. Risk Assessment: Do you want to hurt yourself or someone else? Patient reports no desire to harm self or others. Initial Sepsis Screen: Does the patient meet any 2 criteria? No. Patient's initial sepsis screen is negative. Does the patient have a suspected source of infection? No. Patient's initial sepsis screen is negative. Care prior to arrival: None. 09:57 Method Of Arrival: Ambulatory ss 09:57 Acuity: KRISHAN 4 ss Historical: - Allergies: 09:59 Darvocet-N 100; ss 09:59 Latex, Natural Rubber; ss - Home Meds: 09:59 Cymbalta 30 mg oral cpDR 1 cap once daily [Active]; ss - PMHx: 09:59 Bipolar disorder; Fibromyalgia; ss - PSHx: 09:59 gastric sleeve; Tubal ligation; ss - Immunization history:: Adult Immunizations up to date. - Social history:: Smoking status: Patient uses tobacco products, smokes one-half pack cigarettes per day. - Ebola Screening: : Patient denies exposure to infectious person Patient denies travel to an Ebola-affected area in the 21 days before illness onset. Screenin:45 Abuse screen: Denies threats or abuse. Nutritional screening: No deficits noted. em Tuberculosis screening: No symptoms or risk factors identified. Fall Risk None identified. Assessment: 10:45 General: Appears in no apparent distress. comfortable, Behavior is calm, cooperative. em Pain: Complains of pain in anterior aspect of right shoulder Pain currently is 8 out of 10 on a pain scale. Neuro: Level of Consciousness is awake, alert, obeys commands, Oriented to person, place, time, situation. Cardiovascular: Capillary refill < 3 seconds Patient's skin is warm and dry. Respiratory: Airway is patent Respiratory effort is even, unlabored, Respiratory pattern is regular, symmetrical. Derm: Derm: Skin is intact, is healthy with good turgor, Skin is pink, warm \T\ dry. Musculoskeletal: Range of motion: limited in right shoulder Swelling absent. 11:00 General: The previous assessment is accurate. Call light remains within reach. Vital Signs: 09:59 BP 154 / 86; Pulse 88; Resp 15; Temp 98.1(TE); Pulse Ox 98% on R/A; Weight 90.72 kg; ss Height 5 ft. 3 in. (160.02 cm); Pain 8/10; 09:59 Body Mass Index 35.43 (90.72 kg, 160.02 cm) ED Course: 09:40 Patient arrived in ED. as 09:59 Triage completed. ss 09:59 Arm band placed on left wrist. ss 10:12 Liang Barba NP is PHCP. pm1 10:12 Erwin Overton MD is Attending Physician. pm1 10:34 Isiah Talbot LVN is Primary Nurse. em 10:45 Bed in low position. Call light in reach. em 11:04 No provider procedures requiring assistance completed. Patient did not have IV access em during this emergency room visit. Administered Medications: 10:57 Drug: [place] 10 mg-325 mg 1 tabs Route: PO; em 11:06 Follow up: Response: Medication administered at discharge. em Outcome: 10:46 Discharge ordered by MD. pm1 11:04 Discharged to home ambulatory, with family. em 11:04 Condition: good 11:04 Discharge instructions given to patient, Instructed on discharge instructions, follow up and referral plans. medication usage, Demonstrated understanding of instructions, follow-up care, medications, Prescriptions given X 1. 11:08 Patient left the ED. em Signatures: Isiah Talbot LVN LVN em Mya Diaz Shelby, RN RN Liang Barba NP PHARMACY AIDE pm1
--- NOTE | 2019-03-11 10:48 | EDPHYS ---
Physician Documentation [facility] Name: Autumn Winter Age: 33 yrs Sex: Female : 1985 Arrival Date: 03/11/2019 Time: 09:40 Bed 19 Private MD: RAMONA Physician Erwin Overton HPI: 03/11 10:41 This 33 yrs old Female presents to ER via Ambulatory with complaints of Right pm1 Shoulder Pain. 10:41 The patient or guardian complains of pain, that is acute. right shoulder. Context: The pm1 problem was sustained at home, resulted from an unknown reason, The patient reports no obvious deformity. Onset: The symptoms/episode began/occurred 5 day(s) ago. Modifying factors: the symptoms are alleviated by remaining still, The symptoms are aggravated by movement. Associated signs and symptoms: Pertinent negatives: chest pain, neck pain, Numbness in right arm. Severity of symptoms: in the emergency department the symptoms are actually worse. Treatment prior to arrival includes: over the counter medications, NSAIDS. The patient has not experienced similar symptoms in the past. The patient has been recently seen by a physician: the patient's primary care provider, X-ray performed of right shoulder for the same complaint. patient has gone to work since seeing the PCP for her right shoulder pain. 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 Historical: - Allergies: 09:59 Darvocet-N 100; ss 09:59 Latex, Natural Rubber; ss - Home Meds: 09:59 Cymbalta 30 mg oral cpDR 1 cap once daily [Active]; ss - PMHx: 09:59 Bipolar disorder; Fibromyalgia; ss - PSHx: 09:59 gastric sleeve; Tubal ligation; ss - Immunization history:: Adult Immunizations up to date. - Social history:: Smoking status: Patient uses tobacco products, smokes one-half pack cigarettes per day. - Ebola Screening: : Patient denies exposure to infectious person Patient denies travel to an Ebola-affected area in the 21 days before illness onset. ROS: 10:41 Constitutional: Negative for fever, chills, and weight loss, Eyes: Negative for injury, pm1 pain, redness, and discharge, ENT: Negative for injury, pain, and discharge, Neck: Negative for injury, pain, and swelling, Cardiovascular: Negative for chest pain, palpitations, and edema, Respiratory: Negative for shortness of breath, cough, wheezing, and pleuritic chest pain, Abdomen/GI: Negative for abdominal pain, nausea, vomiting, diarrhea, and constipation, Back: Negative for injury and pain, : Negative for injury, bleeding, discharge, and swelling. 10:41 Skin: Negative for injury, rash, and discoloration, Neuro: Negative for headache, weakness, numbness, tingling, and seizure. 10:41 MS/extremity: Positive for pain, of the right shoulder, Negative for deformity. Exam: 10:41 Constitutional: This is a well developed, well nourished patient who is awake, alert, pm1 and in no acute distress. Head/Face: Normocephalic, atraumatic. Eyes: Pupils equal round and reactive to light, extra-ocular motions intact. Lids and lashes normal. Conjunctiva and sclera are non-icteric and not injected. Cornea within normal limits. Periorbital areas with no swelling, redness, or edema. ENT: Nares patent. No nasal discharge, no septal abnormalities noted. Tympanic membranes are normal and external auditory canals are clear. Oropharynx with no redness, swelling, or masses, exudates, or evidence of obstruction, uvula midline. Mucous membranes moist. Neck: Trachea midline, no thyromegaly or masses palpated, and no cervical lymphadenopathy. Supple, full range of motion without nuchal rigidity, or vertebral point tenderness. No Meningismus. Chest/axilla: Normal chest wall appearance and motion. Nontender with no deformity. No lesions are appreciated. Cardiovascular: Regular rate and rhythm with a normal S1 and S2. No gallops, murmurs, or rubs. Normal PMI, no JVD. No pulse deficits. Respiratory: Lungs have equal breath sounds bilaterally, clear to auscultation and percussion. No rales, rhonchi or wheezes noted. No increased work of breathing, no retractions or nasal flaring. Abdomen/GI: Soft, non-tender, with normal bowel sounds. No distension or tympany. No guarding or rebound. No evidence of tenderness throughout. Back: No spinal tenderness. No costovertebral tenderness. Full range of motion. Skin: Warm, dry with normal turgor. Normal color with no rashes, no lesions, and no evidence of cellulitis. 10:41 Musculoskeletal/extremity: Extremities: grossly normal except: noted in the right shoulder: tenderness, There is no evidence of decreased ROM, deformity. Vital Signs: 09:59 BP 154 / 86; Pulse 88; Resp 15; Temp 98.1(TE); Pulse Ox 98% on R/A; Weight 90.72 kg; ss Height 5 ft. 3 in. (160.02 cm); Pain 02/26; 09:59 Body Mass Index 35.43 (90.72 kg, 160.02 cm) ss MDM: 10:21 Patient medically screened. [facility] 10:41 Data reviewed: vital signs. Data interpreted: Pulse oximetry: on room air is 98 %. pm1 Interpretation: normal. 10:41 ED course: Right shoulder X-ray from 03/07/2019 reviewed and discussed with patient. pm1 Mild AC joint degenerative changes are present. No fracture or dislocation seen. 10:45 Counseling: I had a detailed discussion with the patient and/or guardian regarding: the pm1 historical points, exam findings, and any diagnostic results supporting the discharge/admit diagnosis, the need for outpatient follow up, for definitive care, a orthopedic surgeon, to return to the emergency department if symptoms worsen or persist or if there are any questions or concerns that arise at home. 03/11 10:45 Order name: Sling; Complete Time: 10:51 pm1 Administered Medications: 10:57 Drug: [place] 10 mg-325 mg 1 tabs Route: PO; em 11:06 Follow up: Response: Medication administered at discharge. em Disposition: 15:25 Co-signature as Attending Physician, Erwin Overton MD I agree with the assessment and [facility] plan of care. Disposition: 03/11/19 10:46 Discharged to Home. Impression: Pain in right shoulder. - Condition is Stable. - Discharge Instructions: Arthritis, Shoulder Pain, How to Use a Sling. - Prescriptions for Tylenol- Codeine #3 300-30 mg Oral Tablet - take 2 tablets by ORAL route every 6 hours As needed; 20 tablet. - Work release form, Medication Reconciliation Form, Thank You Letter, Antibiotic Education, Prescription Opioid Use form. - Follow up: Emergency Department; When: As needed; Reason: Worsening of condition. Follow up: Private Physician; When: 2 - 3 days; Reason: Recheck today's complaints, Continuance of care, Re-evaluation by your physician. - Problem is new. - Symptoms have improved. Signatures: Erwin Overton MD MD cha Munoz, Edgar, PREFABRICATOR PREFABRICATOR em Anayeli Ibrahim RN RN ss Liang Barba, PAMELA CROCHETER pm1 Corrections: (The following items were deleted from the chart) 11:08 10:46 03/11/2019 10:46 Discharged to Home. Impression: Pain in right shoulder. em Condition is Stable. Forms are Medication Reconciliation Form, Thank You Letter, Antibiotic Education, Prescription Opioid Use. Follow up: Emergency Department; When: As needed; Reason: Worsening of condition. Follow up: Private Physician; When: 2 - 3 days; Reason: Recheck today's complaints, Continuance of care, Re-evaluation by your physician. Problem is new. Symptoms have improved. pm1
[2019-03-11] MEDS ORDERED: HYDROCODONE/APAP 10/325 TAB ONE (10:53)
[2019-03-11 11:17] VITALS: BP 154/86; TEMP 98.1; O2SAT 98
== END 2019-03-11 11:08 | disposition home or self-care (01) ==
LOC: ER 09:39
DX: M25.511 Pain in right shoulder (principal); M79.7 Fibromyalgia; Z91.040 Latex allergy status; Z88.6 Allergy status to analgesic agent
CPT/HCPCS: 99283

== ENCOUNTER 2019-09-12 20:54 | Emergency (ER) | payer OTHER ==
--- OUTSIDE RECORDS SUMMARY | 2019-09-12 20:57 | XMS REPORT ---
:1985 Author Organization eClinical[employer] Care Team Providers Name Role Phone Giuliana Lubinh Provider Role Unavailable Allergies, Adverse Reactions, Alerts Substance Reaction Event Type Darvocet-N 50 Info Not Available Drug Allergy Problems Problem Type Condition Code Onset Dates Condition Status Problem Fibroid, uterine D25.9 Active Problem Abnormal weight gain R63.5 Active Problem Depression with anxiety F41.8 Active Problem Increased sleeping G47.10 Active Problem Allergy to wheat Z91.018 Active Problem HTN, goal below 140/90 I10 Active Problem Insomnia G47.00 Active Problem Fibromyalgia M79.7 Active Problem Allergic rhinitis, unspecified J30.9 Active seasonality, unspecified trigger Problem Vitamin D deficiency E55.9 Active Assessment Acute non-recurrent maxillary J01.00 Active sinusitis Assessment HTN, goal below 140/90 I10 Active Problem Nicotine use disorder F17.200 Active Assessment Upper respiratory tract infection, J06.9 Active unspecified type Problem Allergic rhinitis, seasonal J30.2 Active Medications Medication Code Code Instructions Start End Status Dosage System Date Date Zyrtec Allergy [facility] 58792224871 10 MG Orally Active 1 tablet Once a day Duloxetine HCl ND 15156408350 60 MG Orally Active 1 capsule Once a day Amitriptyline HCl ND 68237549102 25 MG Orally Active 1 tablet Once a day Flonase Allergy [facility] 21071077037 50 MCG/ACT Active 1 spray in Relief Nasally Once a each day nostril Tizanidine HCl ND 62054150411 4 MG Orally Active 1 tablet Three times a as needed day Duexis [facility] 70801737087 800-26.6 MG Active 1 tablet Orally Three times a day PRN PAIN Lexapro [facility] 12371029490 20 MG Orally Active 0.5 tablet Once a day Pantoprazole [facility] 60600750205 40 MG Orally Active 1 tablet Sodium Once a day Ibuprofen ND 60190259704 800 MG Orally Active 1 tablet Three times a with food day or milk as needed Propranolol HCl ND 51819810806 20 MG Orally Active 1 tablet Once a day on an empty stomach Azithromycin [facility] 56071690234 250 MG Orally Aug 02, Aug 07, Active 2 tablets Once a day 2019 2019 on the first day, then 1 tablet daily for 4 days Results Name Result Date Reference Range Unit Abnormality Flag STREP A RAPID ----Result NEG [id number] FLU TEST A/B ----B NEG [id number] ----A NEG [id number] Summary Purpose eClinicalWorks Submission
--- OUTSIDE RECORDS SUMMARY | 2019-09-12 20:57 | XMS REPORT ---
[...] G47.00 Active Assessment Fibromyalgia M79.7 Active Assessment Acute pain of right shoulder M25.511 Active Assessment Vitamin D deficiency E55.9 Active Assessment Elevated BP without diagnosis of R03.0 Active hypertension Assessment Allergic rhinitis J30.9 Active Assessment Depression with anxiety F41.8 Active Assessment Insomnia G47.00 Active Assessment Nicotine use disorder F17.200 Active Problem Nicotine use disorder F17.200 Active Medications Medication Code Code Instructions Start End Status Dosage System Date Date Lexapro [facility] 54643742749 20 MG Orally Active 0.5 tablet Once a day Amitriptyline HCl ND 84607265494 25 MG Orally Active 1 tablet Once a day Duexis [facility] 66866156422 800-26.6 MG Active 1 tablet Orally Three times a day PRN PAIN Zyrtec Allergy ND 72335334200 10 MG Orally Active 1 tablet Once a day Ibuprofen ND 87883406999 800 MG Orally Active 1 tablet Three times a with food day or milk as needed Flonase Allergy ND 06917676481 50 MCG/ACT Active 1 spray in Relief Nasally Once a each day nostril Duloxetine HCl ND 04241428255 30 MG Orally Active 1 capsule Once a day Pantoprazole [facility] 10001188189 40 MG Orally Active 1 tablet Sodium Once a day Results No Known Results Summary Purpose eClinicalWorks Submission
--- OUTSIDE RECORDS SUMMARY | 2019-09-12 20:57 | XMS REPORT ---
:1985 Author Organization [employer] Care Team Providers Name Role Phone Tristian Byron Provider Role Unavailable Allergies No Known Allergies Problems Problem Type Condition Code Onset Dates Condition Status Problem Fibroid, uterine D25.9 Active Problem Abnormal weight gain R63.5 Active Problem Depression with anxiety F41.8 Active Problem Nicotine use disorder F17.200 Active Problem Allergic rhinitis, seasonal J30.2 Active Problem Increased sleeping G47.10 Active Problem Allergy to wheat Z91.018 Active Problem HTN, goal below 140/90 I10 Active Problem Insomnia G47.00 Active Problem Fibromyalgia M79.7 Active Problem Allergic rhinitis, unspecified J30.9 Active seasonality, unspecified trigger Problem Vitamin D deficiency E55.9 Active Medications No Known Medications Results No Known Results Summary Purpose eClinicalWorks Submission
--- OUTSIDE RECORDS SUMMARY | 2019-09-12 20:57 | XMS REPORT ---
:1985 Author Organization [employer]Works Care Team Providers Name Role Phone Lubin Byron Provider Role Unavailable Allergies, Adverse Reactions, Alerts Substance Reaction Event Type Darvocet-N 50 Info Not Available Drug Allergy Problems Problem Type Condition Code Onset Dates Condition Status Problem Fibroid, uterine D25.9 Active Problem Abnormal weight gain R63.5 Active Problem Depression with anxiety F41.8 Active Problem Increased sleeping G47.10 Active Assessment Allergic rhinitis J30.9 Active Problem Allergy to wheat Z91.018 Active Assessment Vitamin D deficiency E55.9 Active Assessment Need for Tdap vaccination Z23 Active Problem HTN, goal below 140/90 I10 Active Problem Insomnia G47.00 Active Problem Fibromyalgia M79.7 Active Problem Allergic rhinitis, unspecified J30.9 Active seasonality, unspecified trigger Problem Vitamin D deficiency E55.9 Active Assessment Insomnia G47.00 Active Assessment Nicotine use disorder F17.200 Active Assessment Fibromyalgia M79.7 Active Assessment Acute pain of right shoulder M25.511 Active Assessment Well adult on routine health check Z00.00 Active Assessment HTN, goal below 140/90 I10 Active Problem Nicotine use disorder F17.200 Active Assessment Depression with anxiety F41.8 Active Problem Allergic rhinitis, seasonal J30.2 Active Medications Medication Code Code Instructions Start End Status Dosage System Date Date Duloxetine HCl ND 79553258765 60 MG Orally Active 1 capsule Once a day Tizanidine HCl ND 20799489273 4 MG Orally Active 1 tablet Three times a as needed day Pantoprazole [facility] 72021714132 40 MG Orally Active 1 tablet Sodium Once a day Ibuprofen ND 68318987079 800 MG Orally Active 1 tablet Three times a with food day or milk as needed Duexis [facility] 02526119639 800-26.6 MG Active 1 tablet Orally Three times a day PRN PAIN Zyrtec Allergy [facility] 93091589211 10 MG Orally Active 1 tablet Once a day Propranolol HCl ND 56127552394 20 MG Orally Active 1 tablet Once a day on an empty stomach Flonase Allergy [facility] 39913953465 50 MCG/ACT Active 1 spray in Relief Nasally Once a each day nostril Results No Known Results Immunizations Vaccine Administration Date TDAP > 7 Years-Adacel Aug 25, 2019 Summary Purpose eClinicalWorks Submission
--- OUTSIDE RECORDS SUMMARY | 2019-09-12 20:57 | XMS REPORT ---
[...] Active Problem Increased sleeping G47.10 Active Assessment Vitamin D deficiency E55.9 Active Problem Allergy to wheat Z91.018 Active Problem HTN, goal below 140/90 I10 Active Problem Insomnia G47.00 Active Problem Fibromyalgia M79.7 Active Problem Allergic rhinitis, unspecified J30.9 Active seasonality, unspecified trigger Problem Vitamin D deficiency E55.9 Active Assessment Acute pain of right shoulder M25.511 Active Assessment Insomnia G47.00 Active Assessment Allergic rhinitis J30.9 Active Assessment Fibromyalgia M79.7 Active Assessment Depression with anxiety F41.8 Active Assessment Nicotine use disorder F17.200 Active Problem Nicotine use disorder F17.200 Active Assessment HTN, goal below 140/90 I10 Active Problem Allergic rhinitis, seasonal J30.2 Active Medications Medication Code Code Instructions Start End Status Dosage System Date Date Propranolol HCl ND 82883940673 10 MG Orally Jul 11, Active 1 tablet Once a day 2018 on an empty stomach Tizanidine HCl ND 26317659630 4 MG Orally Active 1 tablet Three times a as needed day Duloxetine HCl ND 37755589125 60 MG Orally Active 1 capsule Once a day Ibuprofen ND 93969125351 800 MG Orally Active 1 tablet Three times a with food day or milk as needed Zyrtec Allergy [facility] 35531456443 10 MG Orally Active 1 tablet Once a day Pantoprazole [facility] 51184901300 40 MG Orally Active 1 tablet Sodium Once a day Amitriptyline HCl ND 83197184323 25 MG Orally Active 1 tablet Once a day Lexapro ND 52779424843 20 MG Orally Active 0.5 tablet Once a day Flonase Allergy [facility] 83486842126 50 MCG/ACT Active 1 spray in Relief Nasally Once a each day nostril Duexis [facility] 16960568443 800-26.6 MG Active 1 tablet Orally Three times a day PRN PAIN Results No Known Results Summary Purpose eClinicalWorks Submission
[2019-09-12] MEDS ORDERED: METOCLOPRAMIDE 10 MG/2mL INJ ONE (21:42)
[2019-09-12] MEDS ORDERED: DIPHENHYDRAMINE 50 MG/ML VIAL ONE (21:42)
[2019-09-12] MEDS ORDERED: NA CHLORIDE 0.9% 0 ML ONE (21:43)
[2019-09-12] MEDS ORDERED: KETOROLAC 30 MG/ML INJ ONE (21:43)
[2019-09-12] MEDS ORDERED: NA CHLORIDE 0.9% 1,000 ML ONE (21:46)
--- NOTE | 2019-09-12 23:56 | EDPHYS ---
Physician Documentation [facility] Name: Autumn Winter Age: 34 yrs Sex: Female : 1985 Arrival Date: 09/12/2019 Time: 20:56 Bed 24 Private MD: RAMONA Physician Erwin Overton HPI: 09/12 21:38 This 34 yrs old Female presents to ER via Ambulatory with complaints of pm1 Headache and neck pain. 21:38 The patient complains of pain to the forehead and right base of the skull. The patient pm1 describes the headache as aching, constant. Onset: The symptoms/episode began/occurred today. Associated signs and symptoms: Pertinent positives: nausea, vomiting, Pertinent negatives: Photophobia rash. Severity of symptoms: in the emergency department the pain is unchanged. 21:38 Headache History: The patient has had previous headaches and this one is similar to pm1 previous episodes, and this one is more severe than previous episodes. The symptoms are alleviated by nothing. the symptoms are aggravated by nothing. The patient has been recently seen by a physician: the patient's primary care provider, Dr. Lubin earlier today, with similar presenting complaints, and apparently given a diagnosis of Migraine, was given a prescription for pain medications, sumatriptan . Patient presents to the ER because no relief with sumatriptan. 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 - Coronavirus screen:: The patient has NOT traveled to [place] in the past 14 days. The patient has NOT had contact with known/suspected case of Coronavirus?. - Social history:: Smoking status: Patient reports the use of cigarette tobacco products, smokes one-half pack cigarettes per day. - Ebola Screening: : Patient negative for fever greater than or equal to 101.5 degrees Fahrenheit, and additional compatible Ebola Virus Disease symptoms Patient denies exposure to infectious person Patient denies travel to an Ebola-affected area in the 21 days before illness onset No symptoms or risks identified at this time. ROS: 21:38 Constitutional: Negative for fever, chills, and weight loss, Eyes: Negative for injury, pm1 pain, redness, and discharge, ENT: Negative for injury, pain, and discharge. 21:38 Cardiovascular: Negative for chest pain, palpitations, and edema, Respiratory: Negative for shortness of breath, cough, wheezing, and pleuritic chest pain, Abdomen/GI: Negative for abdominal pain, nausea, vomiting, diarrhea, and constipation, Back: Negative for injury and pain. 21:38 MS/Extremity: Negative for injury and deformity, Skin: Negative for injury, rash, and discoloration. 21:38 Neck: Positive for tenderness, of the right base of the skull and right side of neck. 21:38 Neuro: Positive for dizziness, headache, Negative for numbness, tingling, weakness. Exam: 21:38 Constitutional: This is a well developed, well nourished patient who is awake, alert, pm1 and in no acute distress. Head/Face: Normocephalic, atraumatic. 21:38 Chest/axilla: Normal chest wall appearance and motion. Nontender with no deformity. No lesions are appreciated. Cardiovascular: Regular rate and rhythm with a normal S1 and S2. No gallops, murmurs, or rubs. Normal PMI, no JVD. No pulse deficits. Respiratory: Lungs have equal breath sounds bilaterally, clear to auscultation and percussion. No rales, rhonchi or wheezes noted. No increased work of breathing, no retractions or nasal flaring. Back: No spinal tenderness. No costovertebral tenderness. Full range of motion. Skin: Warm, dry with normal turgor. Normal color with no rashes, no lesions, and no evidence of cellulitis. MS/ Extremity: Pulses equal, no cyanosis. Neurovascular intact. Full, normal range of motion. 21:38 Neck: External neck: tenderness, that is moderate, of the right trapezius and right base of the skull, C-spine: vertebral tenderness, is not appreciated, ROM/movement: Meningeal signs: are not present, Kernig's sign is negative, Brudzinski's sign is negative, nuchal rigidity, is not appreciated. 21:38 Neuro: Orientation: is normal, Mentation: is normal, Motor: is normal, moves all fours, Sensation: is normal, no obvious gross deficits, Gait: is steady, at a normal pace, without difficulty. Vital Signs: 21:05 BP 158 / 103; Pulse 72; Resp 16; Pulse Ox 100% ; Pain 10/10; sg 22:32 BP 133 / 103; Pulse 64; Resp 18; Pulse Ox 100% on R/A; 23:30 BP 121 / 87; Pulse 74; Resp 16; Pulse Ox 97% on R/A; MDM: 21:15 Patient medically screened. pm1 23:54 Data reviewed: vital signs. Data interpreted: Pulse oximetry: on room air is 97 %. pm1 Interpretation: normal. Counseling: I had a detailed discussion with the patient and/or guardian regarding: the historical points, exam findings, and any diagnostic results supporting the discharge/admit diagnosis, radiology results, the need for outpatient follow up, for definitive care, a neurologist, to return to the emergency department if symptoms worsen or persist or if there are any questions or concerns that arise at home. 09/12 21:22 Order name: CT Head Brain wo Cont pm1 09/12 21:22 Order name: IV Saline Lock; Complete Time: 21:48 pm1 Administered Medications: 21:41 Drug: NS 0.9% 1000 ml Route: IV; Rate: 1000 ml; Site: right antecubital; 09/13 00:01 Follow up: Response: No adverse reaction; IV Status: Completed infusion 09/12 21:43 Drug: Benadryl 25 mg Route: IVP; Site: right antecubital; 09/13 00:01 Follow up: Response: No adverse reaction 09/12 21:45 Drug: TORadol - Ketorolac 15 mg Route: IVP; Site: right antecubital; 09/13 00:01 Follow up: Response: No adverse reaction; Pain is decreased 09/12 21:47 Drug: Reglan 10 mg Route: IVP; Site: right antecubital; 09/13 00:01 Follow up: Response: No adverse reaction Disposition: 07:09 Co-signature as Attending Physician, Erwin Overton MD I agree with the assessment and sierra plan of care. Disposition: 09/12/19 23:55 Discharged to Home. Impression: Headache, Strain of muscle, fascia and tendon at neck level. - Condition is Stable. - Discharge Instructions: General Headache Without Cause, Muscle Strain, Acute Torticollis, Adult. - Prescriptions for Fiorinal 50- 325-40 mg Oral Capsule - take 1 capsule by ORAL route every 4 hours As needed - not to exceed 6 capsules per day; 20 capsule. - Medication Reconciliation Form, Thank You Letter, Antibiotic Education, Prescription Opioid Use form. - Follow up: Emergency Department; When: As needed; Reason: Worsening of condition. Follow up: Private Physician; When: 2 - 3 days; Reason: Recheck today's complaints, Continuance of care, Re-evaluation by your physician. - Problem is new. - Symptoms have improved. Signatures: Dispatcher [employer] EDMS Mohsen Rucker RN RN sg Anderson, Corey, MD MD cha Marinas, Patrick, PAMELA PHYSICALLY IMPAIRED TEACHER pm1 Dara Washington Corrections: (The following items were deleted from the chart) 09/12 21:04 21:04 Social history: Smoking status: Patient denies any tobacco usage or history of. sgsg 21:04 21:04 Ebola Screening: Patient negative for fever greater than or equal to 101.5 sg degrees Fahrenheit, and additional compatible Ebola Virus Disease symptoms Patient denies exposure to infectious person Patient denies travel to an Ebola-affected area in the 21 days before illness onset No symptoms or risks identified at this time sg 09/13 00:02 09/12 23:55 09/12/2019 23:55 Discharged to Home. Impression: Headache; Strain of wh muscle, fascia and tendon at neck level. Condition is Stable. Forms are Medication Reconciliation Form, Thank You Letter, Antibiotic Education, Prescription Opioid Use. Follow up: Emergency Department; When: As needed; Reason: Worsening of condition. Follow up: Private Physician; When: 2 - 3 days; Reason: Recheck today's complaints, Continuance of care, Re-evaluation by your physician. Problem is new. Symptoms have improved. pm1
--- NOTE | 2019-09-12 23:56 | ER ---
Nurse's Notes [facility] Name: Autumn Winter Age: 34 yrs Sex: Female : 1985 Arrival Date: 09/12/2019 Time: 20:56 Bed 24 Private MD: Diagnosis: Headache;Strain of muscle, fascia and tendon at neck level Presentation: 09/12 21:03 Presenting complaint: Patient states: Right Side neck and shoulder pain, reports having sg seen her doctor today and told that if the pain worsened to come to the ER for evaluation, reports having a hx of migraines. Transition of care: patient was not received from another setting of care. Onset of symptoms was September 12, 2019. Risk Assessment: Do you want to hurt yourself or someone else? Patient reports no desire to harm self or others. Initial Sepsis Screen: Does the patient meet any 2 criteria? No. Patient's initial sepsis screen is negative. Does the patient have a suspected source of infection? No. Patient's initial sepsis screen is negative. Care prior to arrival: None. 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 - Coronavirus screen:: The patient has NOT traveled to [place] in the past 14 days. The patient has NOT had contact with known/suspected case of Coronavirus?. - Social history:: Smoking status: Patient reports the use of cigarette tobacco products, smokes one-half pack cigarettes per day. - Ebola Screening: : Patient negative for fever greater than or equal to 101.5 degrees Fahrenheit, and additional compatible Ebola Virus Disease symptoms Patient denies exposure to infectious person Patient denies travel to an Ebola-affected area in the 21 days before illness onset No symptoms or risks identified at this time. Screenin:15 Abuse screen: Denies threats or abuse. Denies injuries from another. Nutritional wh screening: No deficits noted. Tuberculosis screening: No symptoms or risk factors identified. Fall Risk None identified. Assessment: 21:10 General: Appears in no apparent distress. Behavior is calm, cooperative, appropriate wh for age. Pain: Complains of pain in neck and shoulder Pain does not radiate. Pain currently is 7 out of 10 on a pain scale. Quality of pain is described as stinging, Pain began 1 day ago. Neuro: Level of Consciousness is awake, alert, obeys commands, Oriented to person, place, time, situation, Appropriate for age Fur Liner are equal bilaterally Moves all extremities. Gait is steady, Speech is normal, Facial symmetry appears normal, Pupils are PERRLA, Reports dizziness, headache occipital area. Cardiovascular: Heart tones S1 S2. Respiratory: Airway is patent Respiratory effort is even, unlabored, Respiratory pattern is regular, symmetrical, Breath sounds are clear bilaterally. GI: Abdomen is flat, non-distended, Abd is soft and non tender X 4 quads. : No signs and/or symptoms were reported regarding the genitourinary system. EENT: No signs and/or symptoms were reported regarding the EENT system. Derm: Skin is intact, is healthy with good turgor. Derm: Skin is pink, warm \T\ dry. normal. Musculoskeletal: Circulation, motion, and sensation intact. 22:35 Reassessment: Patient appears in no apparent distress at this time. No changes from previously documented assessment. Patient and/or family updated on plan of care and expected duration. Pain level reassessed. Patient is alert, oriented x 3, equal unlabored respirations, skin warm/dry/pink. 23:45 Reassessment: Patient appears in no apparent distress at this time. No changes from previously documented assessment. Patient and/or family updated on plan of care and expected duration. Pain level reassessed. Patient is alert, oriented x 3, equal unlabored respirations, skin warm/dry/pink. Patient states feeling better. Patient states symptoms have improved. Vital Signs: 21:05 BP 158 / 103; Pulse 72; Resp 16; Pulse Ox 100% ; Pain 10/10; sg 22:32 BP 133 / 103; Pulse 64; Resp 18; Pulse Ox 100% on R/A; wh 23:30 BP 121 / 87; Pulse 74; Resp 16; Pulse Ox 97% on R/A; ED Course: 20:56 Patient arrived in ED. jg7 21:04 Triage completed. sg 21:04 Arm band placed on. sg 21:14 Laing Barba, PAMELA is PHCP. pm1 21:14 Erwin Overton MD is Attending Physician. pm1 21:15 Patient has correct armband on for positive identification. Bed in low position. Call light in reach. Side rails up X 1. Pulse ox on. NIBP on. 21:19 Dara Washington is Primary Nurse. 21:20 Inserted saline lock: 20 gauge in right antecubital area, using aseptic technique. 23:24 CT Head Brain wo Cont In Process Unspecified. EDMN 09/13 00:00 No provider procedures requiring assistance completed. IV discontinued, intact, bleeding controlled, No redness/swelling at site. Administered Medications: 09/12 21:41 Drug: NS 0.9% 1000 ml Route: IV; Rate: 1000 ml; Site: right antecubital; 09/13 00:01 Follow up: Response: No adverse reaction; IV Status: Completed infusion 09/12 21:43 Drug: Benadryl 25 mg Route: IVP; Site: right antecubital; 09/13 00:01 Follow up: Response: No adverse reaction 09/12 21:45 Drug: TORadol - Ketorolac 15 mg Route: IVP; Site: right antecubital; 09/13 00:01 Follow up: Response: No adverse reaction; Pain is decreased 09/12 21:47 Drug: Reglan 10 mg Route: IVP; Site: right antecubital; 09/13 00:01 Follow up: Response: No adverse reaction Outcome: 09/12 23:55 Discharge ordered by . pm1 09/13 00:00 Discharged to home ambulatory, with family. Condition: stable Discharge instructions given to patient, family, Instructed on discharge instructions, follow up and referral plans. medication usage, POC Demonstrated understanding of instructions, follow-up care, medications, POC Prescriptions given X 1. 00:02 Patient left the ED. Signatures: Dispatcher [employer] EDMN Mohsen Rucker RN RN Liang Barba, ANIMAL ATTENDANTS AND TRAINERS ANIMAL ATTENDANTS AND TRAINERS pm1 Dara Washington Amanda Rooney [email or web address] Corrections: (The following items were deleted from the chart) 09/12 21:04 21:04 Social history: Smoking status: Patient denies any tobacco usage or history of. sgs 21:04 21:04 Ebola Screening: Patient negative for fever greater than or equal to 101.5 sg degrees Fahrenheit, and additional compatible Ebola Virus Disease symptoms Patient denies exposure to infectious person Patient denies travel to an Ebola-affected area in the 21 days before illness onset No symptoms or risks identified at this time sg
[2019-09-13 02:01] VITALS: BP 121/87; O2SAT 97
--- NOTE | 2019-09-13 10:30 | RAD REPORT ---
EXAM DESCRIPTION: CT HEAD WITHOUT IV CONTRAST CLINICAL HISTORY: Headache. COMPARISON: None. TECHNIQUE: CT scan of the brain without IV contrast. This exam was performed according to our depa rtmental dose-optimization program, which includes automated exposure control, adjustment of the mA a nd/or kV according to patient size and/or use of iterative reconstruction technique. FINDINGS: The ventricles, cisterns, and sulci are age-appropriate. No evidence of acute infarction, intracranial hemorrhage, extra-axial fluid collection, or midline shift. No air-fluid levels are seen in the paranasal sinuses to suggest acute sinusitis. No depressed skull fracture. IMPRESSION: No acute intracranial findings. Electronically signed by: Rasheed Chacko MD 09/12/2019 11:10 PM KELLER MACHINE OPERATOR Due to temporary technical issues with the PACS/Fluency reporting system, reports are being signed b y the in house radiologist as a courtesy to ensure prompt reporting. The interpreting radiologist is fully responsible for the content of the report.
== END 2019-09-13 00:02 | disposition home or self-care (01) ==
LOC: ER 20:54
DX: S16.1XXA Strain of muscle, fascia and tendon at neck level, initial encounter (principal); F17.210 Nicotine dependence, cigarettes, uncomplicated; Z88.5 Allergy status to narcotic agent; Z91.040 Latex allergy status; Z91.048 Other nonmedicinal substance allergy status
CPT/HCPCS: 96361; 70450; 96375; 96374; 99284; J2765; J1200; J7030; J7040

== ENCOUNTER 2019-09-14 17:33 | Emergency (ER) | payer OTHER ==
--- OUTSIDE RECORDS SUMMARY | 2019-09-14 17:49 | XMS REPORT ---
[...] Dosage System Date Date Propranolol HCl ND 78218280183 10 MG Orally Jul 11, Active 1 tablet Once a day 2018 on an empty stomach Tizanidine HCl ND 27233706505 4 MG Orally Active 1 tablet Three times a as needed day Duloxetine HCl ND 91399617095 60 MG Orally Active 1 capsule Once a day Ibuprofen ND 18189628243 800 MG Orally Active 1 tablet Three times a with food day or milk as needed Zyrtec Allergy [facility] 80782413343 10 MG Orally Active 1 tablet Once a day Pantoprazole [facility] 94700212671 40 MG Orally Active 1 tablet Sodium Once a day Amitriptyline HCl ND 11862525011 25 MG Orally Active 1 tablet Once a day Lexapro ND 95018806018 20 MG Orally Active 0.5 tablet Once a day Flonase Allergy NDC 73352206510 50 MCG/ACT Active 1 spray in Relief Nasally Once a each day nostril Duexis [facility] 42874275723 800-26.6 MG Active 1 tablet Orally Three times a day PRN PAIN Results No Known Results Summary Purpose eClinicalWorks Submission
--- OUTSIDE RECORDS SUMMARY | 2019-09-14 17:49 | XMS REPORT ---
[...] End Status Dosage System Date Date Lexapro [facility] 48206346332 20 MG Orally Active 0.5 tablet Once a day Amitriptyline HCl ND 21815535687 25 MG Orally Active 1 tablet Once a day Duexis [facility] 73934910834 800-26.6 MG Active 1 tablet Orally Three times a day PRN PAIN Zyrtec Allergy ND 36959081609 10 MG Orally Active 1 tablet Once a day Ibuprofen ND 26341793060 800 MG Orally Active 1 tablet Three times a with food day or milk as needed Flonase Allergy ND 51194717745 50 MCG/ACT Active 1 spray in Relief Nasally Once a each day nostril Duloxetine HCl ND 28408596953 30 MG Orally Active 1 capsule Once a day Pantoprazole [facility] 40418689551 40 MG Orally Active 1 tablet Sodium Once a day Results No Known Results Summary Purpose eClinicalWorks Submission
--- OUTSIDE RECORDS SUMMARY | 2019-09-14 17:50 | XMS REPORT ---
:1985 Author Organization eClinicalWorks Care Team Providers Name Role Phone [facility] Provider Role Unavailable Allergies, Adverse Reactions, Alerts Substance Reaction Event Type Darvocet-N 50 Info Not Available Drug Allergy Problems Problem Type Condition Code Onset Dates Condition Status Problem Depression with anxiety F41.8 Active Problem Fibromyalgia M79.7 Active Problem Abnormal weight gain R63.5 Active Problem HTN, goal below 140/90 I10 Active Problem Increased sleeping G47.10 Active Problem Migraine without aura and without G43.009 Active status migrainosus, not intractable Problem Vitamin D deficiency E55.9 Active Problem Insomnia G47.00 Active Problem Allergy to wheat Z91.018 Active Problem Allergic rhinitis, unspecified J30.9 Active seasonality, unspecified trigger Problem Nicotine use disorder F17.200 Active Assessment Nausea R11.0 Active Problem Allergic rhinitis, seasonal J30.2 Active Assessment Migraine without aura and without G43.009 Active status migrainosus, not intractable Problem Fibroid, uterine D25.9 Active Medications Medication Code Code Instructions Start End Status Dosage System Date Date Sumatriptan [facility] 39035340946 50 MG Orally Sep 12, Active 1 tablet Succinate Once a day 2019 at least 2 hours between doses as needed. Max 2 tabs/24 hours Tizanidine HCl [facility] 47228757205 4 MG Orally Active 1 tablet Three times a as needed day Flonase Allergy ND 50823402248 50 MCG/ACT Active 1 spray in Relief Nasally Once a each day nostril Pantoprazole ND 81308178707 40 MG Orally Active 1 tablet Sodium Once a day Zofran ND 18357270936 4 MG Orally TID Sep 12, Active 1 tablet PRN Nausea or 2020 VOmiting Duexis [facility] 54595095354 800-26.6 MG Active 1 tablet Orally Three times a day PRN PAIN Duloxetine HCl ND 10548666251 60 MG Orally Active 1 capsule Once a day Propranolol HCl ND 88425243737 20 MG Orally Active 1 tablet Once a day on an empty stomach Ibuprofen [facility] 20432673028 800 MG Orally Active 1 tablet Three times a with food day or milk as needed Zyrtec Allergy [facility] 60674013593 10 MG Orally Active 1 tablet Once a day Results No Known Results Summary Purpose eClinicalWorks Submission
--- OUTSIDE RECORDS SUMMARY | 2019-09-14 17:50 | XMS REPORT ---
[...] Dosage System Date Date Duloxetine HCl ND 01048732019 60 MG Orally Active 1 capsule Once a day Tizanidine HCl ND 08800526378 4 MG Orally Active 1 tablet Three times a as needed day Pantoprazole [facility] 22658731941 40 MG Orally Active 1 tablet Sodium Once a day Ibuprofen ND 36505619356 800 MG Orally Active 1 tablet Three times a with food day or milk as needed Duexis [facility] 06965230349 800-26.6 MG Active 1 tablet Orally Three times a day PRN PAIN Zyrtec Allergy [facility] 63380890075 10 MG Orally Active 1 tablet Once a day Propranolol HCl ND 08079905473 20 MG Orally Active 1 tablet Once a day on an empty stomach Flonase Allergy [facility] 96199576370 50 MCG/ACT Active 1 spray in Relief Nasally Once a each day nostril Results No Known Results Immunizations Vaccine Administration Date TDAP > 7 Years-Adacel Aug 25, 2019 Summary Purpose eClinicalWorks Submission
--- OUTSIDE RECORDS SUMMARY | 2019-09-14 17:50 | XMS REPORT ---
[...] Status Dosage System Date Date Zyrtec Allergy [facility] 69883436194 10 MG Orally Active 1 tablet Once a day Duloxetine HCl ND 29428898123 60 MG Orally Active 1 capsule Once a day Amitriptyline HCl ND 56803627859 25 MG Orally Active 1 tablet Once a day Flonase Allergy [facility] 26331932582 50 MCG/ACT Active 1 spray in Relief Nasally Once a each day nostril Tizanidine HCl ND 04183651651 4 MG Orally Active 1 tablet Three times a as needed day Duexis [facility] 68582408306 800-26.6 MG Active 1 tablet Orally Three times a day PRN PAIN Lexapro [facility] 55706099231 20 MG Orally Active 0.5 tablet Once a day Pantoprazole [facility] 22782118958 40 MG Orally Active 1 tablet Sodium Once a day Ibuprofen ND 10354246821 800 MG Orally Active 1 tablet Three times a with food day or milk as needed Propranolol HCl ND 19471042457 20 MG Orally Active 1 tablet Once a day on an empty stomach Azithromycin [facility] 79242844489 250 MG Orally Aug 02, Aug 07, Active 2 tablets Once a day 2019 2019 on the first day, then 1 tablet daily for 4 days Results Name Result Date Reference Range Unit Abnormality Flag STREP A RAPID ----Result NEG [id number] FLU TEST A/B ----B NEG [id number] ----A NEG [id number] Summary Purpose eClinicalWorks Submission
[2019-09-14] MEDS ORDERED: METOCLOPRAMIDE 10 MG/2mL INJ ONE (18:29)
[2019-09-14] MEDS ORDERED: NA CHLORIDE 0.9% 1,000 ML ONE (18:30)
[2019-09-14] MEDS ORDERED: DIPHENHYDRAMINE 50 MG/ML VIAL ONE (18:30)
[2019-09-14] MEDS ORDERED: KETOROLAC 30 MG/ML INJ ONE (18:30)
[2019-09-14] MEDS ORDERED: NA CHLORIDE 0.9% 100 ML IV ONE (18:30)
[2019-09-14] MEDS ORDERED: ONDANSETRON 4 MG/2 ML VIAL ONE (18:48)
--- NOTE | 2019-09-14 20:09 | ER ---
Nurse's Notes [facility] Name: Autumn Winter Age: 34 yrs Sex: Female : 1985 Arrival Date: 09/14/2019 Time: 17:36 Bed 16 Private MD: Diagnosis: Migraine without aura Presentation: 09/14 17:42 Presenting complaint: Patient states: i have a migraine still, it started Thursday, i tw2 have a hx of migraines and it is just never this bad, i was in here Thursday night and they gave me the migraine cocktail and it helped, and the medicine they gave me has helped but it is just not getting better, my regular doctor told me to come back here immediately about 230 today since i am still having the pain. Transition of care: patient was not received from another setting of care. Onset of symptoms was September 14, 2019. Risk Assessment: Do you want to hurt yourself or someone else? Patient reports no desire to harm self or others. Initial Sepsis Screen: Does the patient meet any 2 criteria? HR > 90 bpm. No. Patient's initial sepsis screen is negative. Does the patient have a suspected source of infection? No. Patient's initial sepsis screen is negative. Care prior to arrival: None. 17:42 Method Of Arrival: Ambulatory tw2 17:42 Acuity: KRISHAN 3 tw2 Triage Assessment: 17:43 Headache History: The patient has had previous headaches and this one is more severe tw2 than previous episodes. General: Appears uncomfortable, Behavior is calm, cooperative, appropriate for age. Pain: Complains of pain in back of scalp and forehead Pain currently is 7 out of 10 on a pain scale. Pain began 2-3 days ago. Also complains of nausea, photophobia. Neuro: Reports dizziness, headache frontal area, occipital area. 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 - Coronavirus screen:: The patient has NOT traveled to [place] in the past 14 days. - Social history:: Smoking status: Patient reports the use of cigarette tobacco products, smokes one pack cigarettes per day. - Ebola Screening: : Patient denies travel to an Ebola-affected area in the 21 days before illness onset. Screenin:49 Abuse screen: Denies threats or abuse. Denies injuries from another. Nutritional ls4 screening: No deficits noted. Tuberculosis screening: No symptoms or risk factors identified. Fall Risk None identified. Assessment: 18:46 General: Appears uncomfortable. Pain: Complains of pain in left scientology and right scientology ls4 and forehead. Neuro: No deficits noted. Level of Consciousness is awake, alert, obeys commands, Oriented to person, place, time, situation, Reports photophobia in forehead. Cardiovascular: No deficits noted. Respiratory: No deficits noted. GI: No deficits noted. : No deficits noted. Derm: No deficits noted. Musculoskeletal: No deficits noted. 20:00 Reassessment: Patient appears in no apparent distress at this time. Patient and/or ls4 family updated on plan of care and expected duration. Pain level reassessed. Patient is alert, oriented x 3, equal unlabored respirations, skin warm/dry/pink. Patient states symptoms have improved. Vital Signs: 17:45 BP 143 / 101; Pulse 96; Resp 17; Temp 97.9(O); Pulse Ox 98% on R/A; Weight 89.36 kg tw2 (R); Height 5 ft. 3 in. (160.02 cm); Pain 7/10; 20:08 BP 140 / 84; Pulse 84; Resp 16; Pulse Ox 99% on R/A; Pain 3/10; ls4 20:20 BP 120 / 81; Pulse 65; Resp 18; Pulse Ox 99% ; Pain 2/10; wh 17:45 Body Mass Index 34.90 (89.36 kg, 160.02 cm) tw2 ED Course: 17:36 Patient arrived in ED. as 17:43 Triage completed. tw2 17:43 Arm band placed on. tw2 18:04 Patient has correct armband on for positive identification. Bed in low position. Call ls4 light in reach. Side rails up X 1. Pulse ox on. NIBP on. 18:04 Noise minimized. Lights dimmed. Warm blanket given. ls4 18:04 No provider procedures requiring assistance completed. Inserted saline lock: 20 gauge ls4 in left antecubital area, using aseptic technique. Patient maintains SpO2 saturation greater than 95% on room air. 18:06 Zeyad Landry FNP-C is [facility]. la1 18:06 Hemant Martinez MD is Attending Physician. la1 18:19 Debra Bedoya, RN is Primary Nurse. ls4 20:20 IV discontinued, intact, bleeding controlled, No redness/swelling at site. wh Administered Medications: 18:41 Drug: TORadol - Ketorolac 15 mg Route: IVP; Site: right antecubital; ls4 20:21 Follow up: Response: No adverse reaction; Pain is decreased 18:41 Drug: Reglan 10 mg Route: IVP; Site: right antecubital; ls4 20:21 Follow up: Response: No adverse reaction 18:42 Drug: NS 0.9% 1000 ml Route: IV; Rate: 1000 ml; Site: right antecubital; ls4 20:22 Follow up: Response: No adverse reaction; IV Status: Completed infusion 18:44 Drug: Zofran 4 mg Route: IVP; Site: right antecubital; ls4 20:21 Follow up: Response: No adverse reaction; Nausea is decreased 18:55 Drug: Benadryl 12.5 mg Route: IVP; Site: left antecubital; ls4 20:21 Follow up: Response: No adverse reaction Outcome: 20:08 Discharge ordered by . la1 20:19 Discharged to home ambulatory, with family. 20:19 Condition: stable 20:19 Discharge instructions given to patient, family, Instructed on discharge instructions, follow up and referral plans. POC Demonstrated understanding of instructions, follow-up care, POC 20:22 Patient left the ED. Signatures: Mya Diaz as Zeyad Landry FNP-C SUPERVISOR WET ROOM-Cla1 Elli Rayo RN RN tw2 Dara Washington Debra Bedoya, RN RN ls4
--- NOTE | 2019-09-14 20:09 | EDPHYS ---
Physician Documentation [facility] Name: Autumn Winter Age: 34 yrs Sex: Female : 1985 Arrival Date: 09/14/2019 Time: 17:36 Bed 16 Private MD: ED Physician Hemant Martinez HPI: 09/14 18:30 This 34 yrs old Female presents to ER via Ambulatory with complaints of la1 Headache. 18:30 The patient complains of pain to the forehead, right christian and left christian. The la1 patient describes the headache as aching, constant, pounding. Onset: The symptoms/episode began/occurred 3 day(s) ago. Associated signs and symptoms: Pertinent positives: dizziness, nausea. Severity of symptoms: At its worst the pain was severe. Headache History: The patient has had previous headaches and this one is similar to previous episodes, and this one is more severe than previous episodes. The symptoms are alleviated by The patient has experienced similar episodes in the past. The patient has been recently seen at the [facility], this week, for similar complaints CT scan was performed, was given a prescription for pain medications. 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 - Coronavirus screen:: The patient has NOT traveled to [place] in the past 14 days. - Social history:: Smoking status: Patient reports the use of cigarette tobacco products, smokes one pack cigarettes per day. - Ebola Screening: : Patient denies travel to an Ebola-affected area in the 21 days before illness onset. ROS: 18:31 Constitutional: Negative for fever, chills, and weight loss, Eyes: Negative for injury, la1 pain, redness, and discharge, ENT: Negative for injury, pain, and discharge, Neck: Negative for injury, pain, and swelling, Cardiovascular: Negative for chest pain, palpitations, and edema, Respiratory: Negative for shortness of breath, cough, wheezing, and pleuritic chest pain, Abdomen/GI: Negative for abdominal pain, nausea, vomiting, diarrhea, and constipation, Back: Negative for injury and pain, : Negative for injury, bleeding, discharge, and swelling, MS/Extremity: Negative for injury and deformity, Skin: Negative for injury, rash, and discoloration. 18:31 Endocrine: Negative for neck swelling, polydipsia, polyuria, polyphagia, and marked weight changes. 18:31 Neuro: Positive for headache. Exam: 18:32 Constitutional: This is a well developed, well nourished patient who is awake, alert, la1 and in no acute distress. Head/Face: Normocephalic, atraumatic. Eyes: Pupils equal round and reactive to light, extra-ocular motions intact. Lids and lashes normal. Conjunctiva and sclera are non-icteric and not injected. Cornea within normal limits. Periorbital areas with no swelling, redness, or edema. ENT: Mucous membranes moist. Neck: Trachea midline Chest/axilla: Normal chest wall appearance and motion. Nontender with no deformity. No lesions are appreciated. 18:32 Respiratory: Lungs have equal breath sounds bilaterally, clear to auscultation and percussion. No rales, rhonchi or wheezes noted. No increased work of breathing, no retractions or nasal flaring. Abdomen/GI: Soft, non-tender, with normal bowel sounds. No distension or tympany. No guarding or rebound. No evidence of tenderness throughout. Back: No spinal tenderness. No costovertebral tenderness. Full range of motion. MS/ Extremity: Pulses equal, no cyanosis. Neurovascular intact. Full, normal range of motion. 18:32 Neck: ROM/movement: is normal, Meningeal signs: Kernig's sign is negative, Brudzinski's sign is negative, nuchal rigidity, is not appreciated. Vital Signs: 17:45 BP 143 / 101; Pulse 96; Resp 17; Temp 97.9(O); Pulse Ox 98% on R/A; Weight 89.36 kg tw2 (R); Height 5 ft. 3 in. (160.02 cm); Pain 7/10; 20:08 BP 140 / 84; Pulse 84; Resp 16; Pulse Ox 99% on R/A; Pain 3/10; ls4 20:20 BP 120 / 81; Pulse 65; Resp 18; Pulse Ox 99% ; Pain 2/10; wh 17:45 Body Mass Index 34.90 (89.36 kg, 160.02 cm) tw2 MDM: 18:06 Patient medically screened. la1 20:07 Data reviewed: vital signs, nurses notes, and as a result, I will discharge patient. la1 Data interpreted: Pulse oximetry: on room air is 98 %. Interpretation: normal. Counseling: I had a detailed discussion with the patient and/or guardian regarding: the historical points, exam findings, and any diagnostic results supporting the discharge/admit diagnosis, the presence of at least one elevated blood pressure reading (>120/80) during this emergency department visit, the need for outpatient follow up, a family practitioner. Special discussion: Based on the patient's history, exam, and Dx evaluation, there is no indication for emergent intervention or inpatient Tx. It is understood by the patient/guardian that if the Sx's persist or worsen they need to return immediately for re-evaluation. 09/14 18:16 Order name: IV; Complete Time: 18:42 la1 Administered Medications: 18:41 Drug: TORadol - Ketorolac 15 mg Route: IVP; Site: right antecubital; ls4 20:21 Follow up: Response: No adverse reaction; Pain is decreased wh 18:41 Drug: Reglan 10 mg Route: IVP; Site: right antecubital; ls4 20:21 Follow up: Response: No adverse reaction wh 18:42 Drug: NS 0.9% 1000 ml Route: IV; Rate: 1000 ml; Site: right antecubital; ls4 20:22 Follow up: Response: No adverse reaction; IV Status: Completed infusion wh 18:44 Drug: Zofran 4 mg Route: IVP; Site: right antecubital; ls4 20:21 Follow up: Response: No adverse reaction; Nausea is decreased wh 18:55 Drug: Benadryl 12.5 mg Route: IVP; Site: left antecubital; ls4 20:21 Follow up: Response: No adverse reaction wh Disposition: 09/15 08:30 Co-signature as Attending Physician, Hemant Martinez MD I agree with the assessment and kdr plan of care. Disposition: 09/14/19 20:08 Discharged to Home. Impression: Migraine without aura. - Condition is Stable. - Discharge Instructions: Migraine Headache. - Medication Reconciliation Form, Thank You Letter form. - Follow up: Private Physician; When: 2 - 3 days; Reason: Recheck today's complaints, Re-evaluation by your physician. Follow up: Emergency Department; When: As needed. - Problem is new. - Symptoms have improved. Signatures: Hemant Martinez MD MD kdr Zeyad Landry FNP-C CLINICAL REHAB SPECIALIST-Cla1 Elli Rayo, RN RN tw2 Dara Washington Debra Bedoya, RN RN ls4 Corrections: (The following items were deleted from the chart) 09/14 20:22 20:08 09/14/2019 20:08 Discharged to Home. Impression: Migraine without aura. Condition wh is Stable. Forms are Medication Reconciliation Form, Thank You Letter, Antibiotic Education, Prescription Opioid Use. Follow up: Private Physician; When: 2 - 3 days; Reason: Recheck today's complaints, Re-evaluation by your physician. Follow up: Emergency Department; When: As needed. Problem is new. Symptoms have improved. la1
[2019-09-14 20:27] VITALS: TEMP 97.9
[2019-09-14 20:29] VITALS: O2SAT 99
[2019-09-14 20:30] VITALS: BP 120/81
== END 2019-09-14 20:22 | disposition home or self-care (01) ==
LOC: ER 17:33
DX: G43.009 Migraine without aura, not intractable, without status migrainosus (principal); F17.210 Nicotine dependence, cigarettes, uncomplicated; F31.9 Bipolar disorder, unspecified; Z88.0 Allergy status to penicillin; Z88.5 Allergy status to narcotic agent; Z91.040 Latex allergy status
CPT/HCPCS: 99284; J2765; J1200; J7030; J2405

== ENCOUNTER 2020-09-21 09:13 | Emergency (ER) | payer OTHER ==
--- OUTSIDE RECORDS SUMMARY | 2020-09-21 09:17 | XMS REPORT | Continuity of Care Document ---
:1985 Author Organization [facility] t Address [address] [place] [address] Care Team Providers Name Role Phone Bianca Steven DO Primary Care Physician Problems Condition Condition Condition Status Onset Resolution Last Treating Co mments Source Name Details Category Date Date Treatment Clinician Date Epigastric Epigastric Disease Active Last [place] pain pain 4-23 Assessmen Methodi 00:00: t & Plan: st [address] gutierres her gastroent erologist who is also unclear for the etiology of the patient's abdominal pain. I will order an ultrasoun d as well as an upper GI and a urine drug screen due to her history. Weight Weight Disease Active Last [place] gain gain 4-20 Assessmen Methodi following following 00:00: t & Plan: s t gastric gastric 00 I spoke bypass bypass to Dr. neena Gutierres, her gastroent erologist , who is also unsure for the etiology of the patient's abdominal pain. I will obtain an upper GI study as well as an abdominal ultrasoun d. I will also obtain a urine drug screen. The patient will be contacted once these results come back. Allergic Allergic Problem [facility] rhinitis, [facility] - unspecifie unspecifie Me moria d d l seasonalit seasonalit Ou tpati y, y, ent unspecifie unspecifie Cl inics d trigger d trigger Allergy to Allergy to Problem Active [facility] wheat wheat [facility] Increased Increased Problem Active [facility] sleeping sleeping [facility] HTN, goal HTN, goal Diagnosis Active [facility] below below [facility] - 140/90 140/90 [facility] Migraine Migraine Diagnosis Active [facility] without without [facility] - aura and aura and Memori a without without l status status Outpati migrainosu migrainosu en t s, not s, not Clinics intractabl intractabl e e Acute pain Acute pain Diagnosis Active [facility] of right of right [facility] - shoulder shoulder [facility] a l [facility] Clinics Multiple Multiple Diagnosis Active [facility] joint pain joint pain Ml kes - [facility]ics Encounter Encounter Diagnosis Active [facility] for for [facility] - dietary dietary Memoria counseling counseling l and and Outpati surveillan surveillan en t ce ce Clinics Body mass Body mass Problem Active [facility] index index [facility] - (BMI) (BMI) Memoria 37.0-37.9, 37.0-37.9, l adult [facility] Morbid Morbid Problem Active [facility] (severe) (severe) [facility] - obesity obesity Memoria due to due to l excess excess Outpati calories calories ent Clinics History of History of Problem Active [facility] attention attention Luke s - deficit deficit Memoria hyperactiv hyperactiv l ity ity Outpati disorder disorder ent (ADHD) (ADHD) Clinics Depression Depression Problem Active [facility] with with [facility] - anxiety anxiety [facility] Nicotine Nicotine Diagnosis Active [facility] use use [facility] - disorder disorder [facility] a [facility] Insomnia Insomnia Diagnosis Active [facility] Fibromyalg Fibromyalg Diagnosis Active [facility] ia ia [facility] Vitamin D Vitamin D Problem Active [facility] deficiency deficiency Ml kes - [facility] Fibroid, Fibroid, Problem Active [facility] uterine uterine [facility] Allergic Allergic Problem Active [facility] rhinitis, rhinitis, Luke [facility] - seasonal seasonal [facility] a l [facility] Abnormal Abnormal Problem Active [facility] weight weight [facility] - gain gain [facility] Allergies, Adverse Reactions, Alerts Allergy Allergy Status Severity Reaction(s) Onset Inactive Treating Comm ents Source Name Type Date Date Clinician Propoxyp Propensi Active Other (See 2017-0 Causes [place] he[place] ty to Comments) 4-20 flu like Metho di N-Acetam adverse 00:00: symptoms st inophen reaction 00 s to drug Darvocet Adverse Active Info Not [facility] -N 50 Reaction Available [facility] Family History Family Member Diagnosis Comments Start Date Stop Date Source Natural father Prostate cancer [place] Natural father Hernia [place] [facility] Natural father Hypertension [place] Natural mother COPD [place] [facility] Natural mother Carpal tunnel [place] syndrome Natural mother Heart disease [place] Natural mother Hypertension [place] Natural mother Mental illness [place] Natural mother Obesity [place] [facility] Natural sister Gallbladder disease [place] Natural brother Mental illness [place] Natural brother Obesity [place] [facility] ethodist Natural daughter Mental illness [place] Social History Social Habit Start Date Stop Date Quantity Comments Source History of tobacco Cigarette Smoker [place] use [place] Sex Assigned At [place] Cigarettes smoked 2016-11-06 2016-11-06 [place] current (pack per 00:00:00 00:00:[address] day) - Reported Tobacco use and 2016-11-06 2016-11-06 Never used [place] exposure 00:00:00 00:00:00 [place] Alcohol intake 2016-11-06 2016-11-06 Current [place] 00:00:00 00:00:00 non-drinker of [place]ast[place] alcohol (finding) Smoking Status Start Date Stop Date Source Current every day smoker 2016-11-06 00:00:00 [place] Medications Ordered Filled Start Stop Current Ordering Indication Dosage Frequency Signature Comments Components Source Medication Medication Date Date Medication? Clinician (SIG) Name Name Som Zofran Yes [place] [address] [facility] 2-24 [facility] - 00:[facility]: [facility] 00 [facility] Sumatriptan Sumatriptan Yes [facility] as [facility] Succinate Succinate 2-24 [place] directed [facility] - 00:00: [facility] 00 [facility] Duexis Duexis 2019- No Byron [address] - 08-24 [facility] - 00:00: 00:00 [facility]oria 00 :00 [facility] omeprazole Yes 10mg QD Take 10 mg [place] (PriLOSEC) 4-20 by mouth Metho di 10 MG 10:34: daily. st capsule 26 Flonase Flonase Yes Byron [address] [facility] Allergy Allergy [facility] each [facility] - Relief Relief nostril Memoria l Outpati ent Clinics Ibuprofen Ibuprofen Yes Byron [address] [facility] Lubin with food [facility]ukes - or milk as Memoria needed l Outpati ent Clinics Pantoprazol Pantoprazol Yes Byron [address] [facility] e Sodium e Sodium [facility]ubin [facility] Zyrtec Zyrtec Yes [facility] 1 tablet [facility] Allergy Allergy [facility] Tizanidine Tizanidine Yes Byron [address] [facility] [address] HCl HCl [facility]ubin as needed [facility] Verapamil Verapamil Yes Byron [address] [facility] [address] HCl HCl [facility] Duloxetine Duloxetine Yes [place] [address] [facility] HCl HCl Lubin [facility] Duloxetine Duloxetine Yes Byron TAKE ONE [facility] HCl HCl Lubin (1) [facility] - CAPSULE(S) Memoria BY MOUTH l ONCE A Outpati DAY. ent Clinics Immunizations Ordered Filled Immunization Date Status Comments [facility] e Immunization Name Name TDAP > 7 TDAP > 7 2019-08-[address] [facility] - Years-Adacel Years-Adacel 00:00:00 [facility] Outpatient Clinics Procedures This patient has no known procedures. Plan of Care Planned Activity Planned Date Details Comments Source Future Scheduled 2020-02-18 INFLUENZA VACCINE [place] Test 00:00:00 [code = INFLUENZA VACCINE] Future Scheduled 2004 Screening for [facility] thodist Test 00:00:00 malignant neoplasm of cervix (procedure) [code = 804853711] Future Scheduled 1999 COVID-19 VACCINE (1 [place] Test 00:00:00 of 2) [code = COVID-19 VACCINE (1 of 2)] Encounters Start End Encounter Admission Attending Care Care Encounter Source Date/Time Date/Time Type Type Clinicians Facility Department ID 2020-03-20 2020-03-20 [facility] [id number] [facility] 11:20:00 11:20:00 [employer] [facility] [employer] [facility] Medicine l Medicine Outpati ent Clinics 2020-02-01 2020-02-01 Outpatient [facility] [id number] [address] 09:45:00 09:45:00 t Wheeldo s - Drive [facility] Medicine Medicine Outpati ent Clinics 2019-11-22 2019-11-22 [facility] [id number] 10:45:00 10:45:00 t Merced Merced [employer] s - Drive [facility] Medicine l Medicine Outpati ent Clinics 2019-10-27 2019-10-27 [facility] [id number] 10:30:00 10:30:00 t [employer]ced [employer] - [employer] [facility] Medicine l Medicine Outpati ent Clinics 2019-09-19 2019-09-19 [facility] [id number] 09:57:00 09:57:00 t [employer] - [employer] Latin [facility] Medicine Outpati ent Clinics 2019-09-14 2019-09-14 [facility] [id number] 14:17:00 14:17:00 t [employer] - [employer] [facility] Medicine Outpati ent Clinics 2019-09-12 2019-09-12 [facility] [id number] 14:15:00 14:15:00 t [employer] - [employer] [facility] Medicine l Medicine Outpati ent Clinics 2019-08-29 2019-08-29 [facility] [id number] 09:58:00 09:58:00 t [employer] [facility] Medicine Outpati ent Clinics 2019-08-25 2019-08-25 [facility] [id number] 10:30:00 10:30:00 t [employer] - [employer] Latin [facility] Medicine Medicine Outpati ent Clinics 2019-08-02 2019-08-02 [facility] [id number] 15:30:00 15:30:00 t [employer] - [employer] [facility] Medicine Outpati ent Clinics 2019-07-11 2019-07-11 [facility] [id number] [address] 14:15:00 14:15:00 t [employer] - [employer] [facility] l Medicine Outpati ent Clinics 2019-04-18 2019-04-18 [facility] [id number] 08:30:00 08:30:[address] [place] s - Drive [facility] Medicine l Medicine Outpati ent Clinics 2019-03-30 2019-03-30 [facility] [id number] 16:37:00 16:37:[address] Luke s - Drive [facility] Medicine l Medicine Outpati ent Clinics 2019-03-28 2019-03-28 [facility] [id number] 08:15:00 08:15:00 t Merced Merced [employer] [place] s - Drive [facility] Medicine l Medicine Outpati ent Clinics 2019-03-22 2019-03-22 [facility] [id number] 08:30:00 08:30:00 t Merced Merced [employer] s - Drive [facility] l Medicine Outpati ent Clinics 2019-03-16 2019-03-16 [facility] [id number] 10[facility]47:00 10:47:00 t Bone Bone and [facility] - and Joint [facility] ent Clinics 2019-03-14 2019-03-14 [facility] [id number] 08:15:00 08:15:00 t Merced Merced [employer] s - Drive [facility] Medicine Outpati ent Clinics 2019-03-07 2019-03-07 [facility] [id number] 16:12:00 16:12:00 t Merced Merced [employer] - Drive [facility] Medicine Outpati ent Clinics 2019-03-07 2019-03-07 [facility] [id number] 08:15:00 08:15:00 t Merced Merced [employer] Luke s - Drive [facility] Medicine Outpati ent Clinics 2019-02-28 2019-02-28 [facility] [id number] 08:15:00 08:15:[address] Luke s - Drive [facility] l Medicine Outpati ent Clinics 2019-02-21 2019-02-21 [facility] [id number] 08:30:00 08:30:00 t Merced Merced [employer] - Drive [facility] Medicine Medicine Outpati ent Clinics 2019-02-14 2019-02-14 [facility] [id number] 08:15:00 08:15:[address] Luke s - Drive [facility] Medicine l Medicine Outpati ent Clinics 2019-02-08 2019-02-08 [facility] [id number] 15:30:00 15:30:[address] Luke s - Drive [facility] Medicine l Medicine Outpati ent Clinics 2019-01-31 2019-01-31 [facility] [id number] 08:15:00 08:15:[address] Luke s - Drive [facility] Medicine l Medicine Outpati ent Clinics 2019-01-26 2019-01-26 [facility] [id number] 13:00:00 13:00:00 t Merced Mer[employer] Luke s - Drive [facility] Medicine l Medicine Outpati ent Clinics 2019-01-18 2019-01-18 [facility] [id number] 10:00:00 10:00:00 t Merced [employer] Luke s - Drive [facility] Medicine l Medicine Outpati ent Clinics 2019-01-11 2019-01-11 [facility] [id number] 09:00:00 09:00:00 t Merced [employer] [place] s - Drive [facility] Medicine l Medicine Outpati ent Clinics 2019-01-03 2019-01-03 [facility] [id number] 09:00:00 09:00:00 t Merced [employer] [place] s - Drive [facility] Medicine Medicine Outpati ent Clinics 2018-11-29 2018-11-29 [facility] [id number] 08:37:00 08:37:00 t Merced Mer[employer] [place] s - Drive [facility] Medicine l Medicine Outpati ent Clinics 2018-11-29 2018-11-29 [facility] [id number] 08:30:00 08:30:00 t Merced Mer[employer] [place] s - Drive [facility] Medicine l Medicine Outpati ent Clinics 2018-11-22 2018-11-22 [facility] [id number] 08:15:00 08:15:[address] Luke s - Eat [employer] [facility] Medicine Outpati ent Clinics 2018-11-15 2018-11-15 [facility] [id number] 08:15:00 08:15:00 t Merced Merced [employer] s - Drive [facility] Medicine Outpati ent Clinics 2018-11-08 2018-11-08 [facility] [id number] 08:15:00 08:15:00 t Merced [employer] - Eat [employer] [facility] Medicine Outpati ent Clinics 2018-11-01 2018-11-01 [facility] [id number] 08:15:00 08:15:00 t Merced [employer]ced [employer] - Eat [employer] [facility] Medicine Outpati ent Clinics 2018-10-26 2018-10-26 [facility] [id number] 09:15:00 09:15:00 t Merced [employer]ced [employer] - Eat [employer] [facility] Medicine Outpati ent Clinics 2018-10-18 2018-10-18 [facility] [id number] 10:30:00 10:30:00 t Merced [employer]ced [employer] s - Eat Latin [facility] Medicine Outpati ent Clinics 2018-10-08 2018-10-08 [facility] [id number] 08:30:00 08:30:00 t [employer]ced [employer] [facility] Medicine Outpati ent Clinics 2018-08-18 2018-08-18 [facility] [id number] 08:00:00 08:00:00 t Merced Merced [employer] s - [employer] [facility] Medicine Outpati ent Clinics 2018-07-28 2018-07-28 [facility] [id number] 13:45:00 13:45:00 t Merced [employer] [facility] Medicine Outpati ent Clinics Results This patient has no known results.
--- NOTE | 2020-09-21 10:29 | RAD REPORT ---
EXAM DESCRIPTION: CT - Head Brain Wo Cont - 09/21/2020 10:21 am CLINICAL HISTORY: PAIN, fall 3 days earlier with persistent pain COMPARISON: Head Brain Wo Cont dated 09/12/2019 TECHNIQUE: Axial 5 mm thick images of the head were obtained without IV contrast. All CT scans are performed using dose optimization technique as appropriate and may include automated exposure control or mA/KV adjustment according to patient size. FINDINGS: No intracranial hemorrhage, mass, edema or shift of mid-line structures. No acute infarcti on changes seen. No abnormal extra-axial fluid collections. Ventricles are normal. Mastoid air cells and visualized portions of the paranasal sinuses are clear. No acute bony findings. No change identified from comparison. IMPRESSION: Negative non-contrast CT head examination.
--- NOTE | 2020-09-21 10:49 | RAD REPORT ---
EXAM DESCRIPTION: RAD - Chest Single View - 09/21/2020 10:38 am CLINICAL HISTORY: SOB, fall with chest pain COMPARISON: October 2017 TECHNIQUE: AP portable chest image was obtained 09/21/2020 10:38 am . FINDINGS: Lung volumes are low. No pulmonary contusion or focal lung parenchymal process seen. Inter stitial pattern matches comparison. Heart and vasculature are normal. No measurable pleural effusion and no pneumothorax. No acute bony abnormality seen. No acute aortic findings suspected. IMPRESSION: No acute cardiopulmonary process. No significant change from comparison study.
[2020-09-21 10:51] LABS: Urine Blood NEGATIVE (NEG); Urine Glucose NEGATIVE (NEG); Urine Protein NEGATIVE (NEG); Urine Specific Gravity 1.025 (1.005-1.030)
--- NOTE | 2020-09-21 10:51 | RAD REPORT ---
EXAM DESCRIPTION: RAD - Lumbar Spine 3 Views - 09/21/2020 10:38 am CLINICAL HISTORY: LOWER BACK PAIN COMPARISON: LUMBAR SPINE 3 VIEWS dated 04/13/2012 FINDINGS: A three-view lumbar spine examination was performed. Lumbar bodies are normal in height and normal in AP alignment. There is a very minimal or subtle left convex curvature of the lumbar spine not clearly different from comparison. No fracture or acute bon y process seen. No disc space narrowing. Patient has facet joint degenerative change at L5-S1 with no rmal variant incomplete fusion of the posterior elements at L5. No pars defects identified. IMPRESSION: Degenerative change and developmental variant involving the facet joints and posterior e lements at the L5-S1 level. The degenerative changes are progressive. No acute finding.
[2020-09-21 10:59] LABS: Absolute Lymphocytes (CBC) 1.6 K/uL (0.7-4.9); Hematocrit 31.7 % (36.0-45.0); Lymphocytes % 28.8 % (15.3-44.8); MPV 7.9 fL (7.6-11.3); RBC Red Blood Cell Count 4.07 M/uL (3.86-4.86)
[2020-09-21 11:02] LABS: Urine Bacteria 20-50 /HPF (<20); Urine RBC <5 /HPF (NONE SEEN)
[2020-09-21 11:12] LABS: Protime INR 1.08
[2020-09-21 11:25] LABS: ALT/SGPT 17 U/L (12-78); AST/SGOT 12 U/L (15-37); Albumin 3.5 g/dL (3.4-5.0); Alkaline Phosphatase 84 U/L (45-117); BUN Blood Urea Nitrogen 9 mg/dL (7-18); Bicarbonate 23 mmol/L (21-32); Bilirubin Direct < 0.1 mg/dL (0-0.2); Bilirubin Total 0.4 mg/dL (0.2-1.0); Glucose Level 98 mg/dL (74-106); Magnesium 2.1 mg/dL (1.8-2.4); NT PRO-BNP 38 pg/mL (<125); Protein, Total 6.7 g/dL (6.4-8.2); Sodium Level 142 mmol/L (136-145); Troponin (Emerg Dept Use Only) < 0.02 ng/mL (0.0-0.045)
[2020-09-21] MEDS ORDERED: NA CHLORIDE 0.9% 1,000 ML ONE (12:10)
--- NOTE | 2020-09-21 13:55 | ER ---
Nurse's Notes [facility] Name: Autumn Winter Age: 35 yrs Sex: Female : 1985 Arrival Date: 09/21/2020 Time: 09:16 Bed 14 Private MD: Byron Lubin Diagnosis: Urinary tract infection, site not specified;Superficial injury of head Presentation: 09/21 09:28 Chief complaint: Patient states: "I fell on last Thursday09/18/20. I fell and hit my jd3 head, my lower back, my left elbow, and my right knee. later that day I was passing out and having a hard time waking up with dizzy spells and forgetting things.". Coronavirus screen: At this time, the client does not indicate any symptoms associated with coronavirus-19. Ebola Screen: Patient negative for fever greater than or equal to 101.5 degrees Fahrenheit, and additional compatible Ebola Virus Disease symptoms. Initial Sepsis Screen: Does the patient meet any 2 criteria? No. Patient's initial sepsis screen is negative. Does the patient have a suspected source of infection? No. Patient's initial sepsis screen is negative. Risk Assessment: Do you want to hurt yourself or someone else? Patient reports no desire to harm self or others. Onset of symptoms was September 18, 2020. 09:28 Method Of Arrival: Ambulatory jd3 09:28 Acuity: KRISHAN 3 jd3 Historical: - Allergies: 09:31 Darvocet-N 100; jd3 09:31 Latex, Natural Rubber; jd3 09:31 PENICILLINS; jd3 - Home Meds: 09:31 Verapamil Oral [Active]; duloxetine oral oral [Active]; jd3 - PMHx: 09:31 Bipolar disorder; Fibromyalgia; jd3 - PSHx: 09:31 gastric sleeve; Tubal ligation; jd3 - Immunization history:: Adult Immunizations up to date. - Social history:: Smoking status: Patient reports the use of cigarette tobacco products, smokes one pack cigarettes per day. Screenin:00 Abuse screen: Denies threats or abuse. Denies injuries from another. Nutritional jl7 screening: No deficits noted. Tuberculosis screening: No symptoms or risk factors identified. Fall Risk IV access (20 points). Total Anderson Fall Scale indicates No Risk (0-24 pts). Assessment: 09:45 General: Appears in no apparent distress. uncomfortable, Behavior is calm, cooperative, jl7 appropriate for age. Pain: Complains of pain in low back area, YOU Pain currently is 5 out of 10 on a pain scale. Pain began x 5 days. Neuro: Level of Consciousness is awake, alert, obeys commands, Oriented to person, place, time, situation, Moves all extremities. Full function Gait is steady, Speech is normal, Facial symmetry appears normal. Cardiovascular: Denies chest pain, Patient's skin is warm and dry. Respiratory: Airway is patent Respiratory effort is even, unlabored, Respiratory pattern is regular, symmetrical, Denies shortness of breath. : Urine is clear. Derm: Skin is pink, warm \\T\\ dry. 11:00 Reassessment: Patient appears in no apparent distress at this time. No changes from jl7 previously documented assessment. Patient and/or family updated on plan of care and expected duration. Pain level reassessed. Patient is alert, oriented x 3, equal unlabored respirations, skin warm/dry/pink. 12:00 Reassessment: Patient appears in no apparent distress at this time. No changes from jl7 previously documented assessment. Patient and/or family updated on plan of care and expected duration. Pain level reassessed. Patient is alert, oriented x 3, equal unlabored respirations, skin warm/dry/pink. 13:00 Reassessment: Patient appears in no apparent distress at this time. No changes from jl7 previously documented assessment. Patient and/or family updated on plan of care and expected duration. Pain level reassessed. Patient is alert, oriented x 3, equal unlabored respirations, skin warm/dry/pink. 14:00 Reassessment: Patient appears in no apparent distress at this time. No changes from jl7 previously documented assessment. Patient and/or family updated on plan of care and expected duration. Pain level reassessed. Patient is alert, oriented x 3, equal unlabored respirations, skin warm/dry/pink. Vital Signs: 09:31 BP 139 / 87; Pulse 90; Resp 17 S; Temp 97.5(O); Pulse Ox 99% on R/A; Weight 90.72 kg jd3 (R); Height 5 ft. 3 in. (160.02 cm) (R); Pain 5/10; 10:00 BP 131 / 82; Pulse 75; Resp 15; Pulse Ox 97% ; jl7 11:37 BP 133 / 70; Pulse 63; Resp 17; Pulse Ox 99% ; jl7 13:03 BP 138 / 78; Pulse 62; Resp 15; Pulse Ox 98% ; jl7 14:00 BP 141 / 83; Pulse 62; Resp 17; Pulse Ox 98% ; jl7 09:31 Body Mass Index 35.43 (90.72 kg, 160.02 cm) jd3 Karla Coma Score: 10:09 Eye Response: spontaneous(4). Verbal Response: oriented(5). Motor Response: obeys [facility] commands(6). Total: 15. NIH Stroke Scale Scores: 10:09 NIHSS Score: 0 [facility] ED Course: 09:16 Patient arrived in ED. am2 09:16 Byron Lubin DO is Private Physician. am2 09:19 Sreedhar Garcias, ROBERTO is Primary Nurse. jl7 09:20 Joseph Bee PA is PHCP. [facility] 09:20 Hemant Martinez MD is Attending Physician. [facility] 09:30 Triage completed. jd3 09:31 Arm band placed on. jd3 10:00 Patient has correct armband on for positive identification. Bed in low position. Call [facility] light in reach. Side rails up X 1. clinical research monitor on. Pulse ox on. NIBP on. 10:17 Radiology exam delayed due to test not completed at this time. mh1 10:20 CT Head Brain wo Cont In Process Unspecified. EDMS 10:29 Radiology exam delayed due to PT IN CT. sw 10:30 Initial lab(s) drawn, by nc, sent to lab. Urine collected: clean catch specimen, clear. jl7 Inserted saline lock: 20 gauge in right forearm, using aseptic technique. Blood collected. 10:35 XRAY Chest (1 view) In Process Unspecified. EDMS 10:35 Lumbar Spine (3 Views) XRAY In Process Unspecified. EDMS 11:15 EKG done, by ED staff, reviewed by Joseph ZAMAN. jl7 13:54 Yunier Hudson MD is Referral Physician. jmm 14:21 No provider procedures requiring assistance completed. IV discontinued, intact, jl7 bleeding controlled, No redness/swelling at site. Pressure dressing applied. Administered Medications: 11:54 Drug: NS 0.9% 1000 ml Route: IV; Rate: 1 bolus; Site: right forearm; [facility] 13:45 Follow up: Response: No adverse reaction; IV Status: Completed infusion; IV Intake: 7 1000ml Intake: 13:45 IV: 1000ml; Total: 1000ml. [facility] Outcome: 13:54 Discharge ordered by MD. watson 14:21 Discharged to home ambulatory. [facility] 14:21 Condition: stable 14:21 Discharge instructions given to patient, Instructed on discharge instructions, follow up and referral plans. medication usage, Demonstrated understanding of instructions, follow-up care, medications, Prescriptions given X 1. 14:22 Patient left the ED. [facility] NIH Stroke Scale - NIH Stroke Score Date: 09/21/2020 Time: 10:09 Total Score = 0 1a. Level of Consciousness (LOC) - 0(Alert) 1b. Level of Consciousness (LOC) (Year \\T\\ Age) - 0(Both) 1c. LOC Commands (Open \\T\\ Closes Eyes/Embedded Software Programmer) - 0(Both) 2. Best Gaze (Lateral Gaze Paresis) - 0(Normal) 3. Visual Field Loss - 0(No visual loss) 4. Facial Palsy - 0(Normal) 5a. Left Arm: Motor (10-second hold) - 0(No drift) 5b. Right Arm: Motor (10-second hold) - 0(No drift) 6a. Left Leg: Motor (5-second hold - always test supine) - 0(No drift) 6b. Right Leg: Motor (5-second hold - always test supine) - 0(No drift) 7. Limb Ataxia (finger/nose \\T\\ heel/cisneros - test with eyes open) - 0(Absent) 8. Sensory Loss (pinprick arms/legs/face) - 0(Normal) 9. Best Language: Aphasia (description/naming/reading) - 0(No aphasia) 10. Dysarthria (speech clarity - read or repeat words) - 0(Normal) 11. Extinction and Inattention (visual/tactile/auditory/spatial/personal) - 0(No abnormality) Initials: shirley Signatures: Dispatcher [employer] EDMS Joseph Bee PA PA jmm Harvey, [facility] Maliha Rios Jahala, RN RN jl7 Milady Sandoval am2 Jed Sherwood, RN RN jd3
--- NOTE | 2020-09-21 13:55 | EDPHYS ---
Physician Documentation [facility] Name: Autumn Winter Age: 35 yrs Sex: Female : 1985 Arrival Date: 09/21/2020 Time: 09:16 Bed 14 Private MD: Tristian [facility] ED Physician Hemant Martinez HPI: 09/21 10:00 This 35 yrs old Female presents to ER via Ambulatory with complaints of Fall jmm Injury, Headache, bodyache. 10:00 Details of fall: The patient fell from a height, down approximately 6 stairs. Onset: jmm The symptoms/episode began/occurred 3 day(s) ago. Associated injuries: The patient sustained injury to the head, pain, injury to the low back, pain with movement. Severity of symptoms: in the emergency department the symptoms are unchanged, despite home interventions. Patient reports falling down stairs last Thursday from unknown cause. Family reports a subsequent and immediate fall where she hit her head, convulsed, urinated and vomited on herself. Pt remembers feeling sudden onset of chest pressure and SOB with episode. She denies an previous or similar event. PMHx: Bipolar, fibromyalgia, migraines, HTN. She smokes occasional marijuana, regular cigarettes, denies taking control. She reports driving herself to hospital today.. Historical: - Allergies: 09:31 Darvocet-N 100; jd3 09:31 Latex, Natural Rubber; jd3 09:31 PENICILLINS; jd3 - Home Meds: 09:31 Verapamil Oral [Active]; duloxetine oral oral [Active]; jd3 - PMHx: 09:31 Bipolar disorder; Fibromyalgia; jd3 - PSHx: 09:31 gastric sleeve; Tubal ligation; jd3 - Immunization history:: Adult Immunizations up to date. - Social history:: Smoking status: Patient reports the use of cigarette tobacco products, smokes one pack cigarettes per day. ROS: 10:07 Eyes: Negative for injury, pain, redness, and discharge, Cardiovascular: Negative for jmm chest pain, palpitations, and edema, Respiratory: Negative for shortness of breath, cough, wheezing, and pleuritic chest pain, Abdomen/GI: Negative for abdominal pain, nausea, vomiting, diarrhea, and constipation, MS/Extremity: Negative for injury and deformity, Skin: Negative for injury, rash, and discoloration. 10:07 Neck: 10:07 Back: Positive for decreased range of motion, pain with movement, of the lumbar area, low back area and left low back. 10:07 Back: Positive for 10:07 Neuro: Positive for headache, loss of consciousness, seizure activity, syncope, of the R side of head. Exam: 10:09 Head/Face: atraumatic. Eyes: EOMI, no conjunctival erythema appreciated Neck: jmm Trachea midline, Supple Chest/axilla: Normal chest wall appearance and motion. Cardiovascular: Regular rate and rhythm. No edema appreciated Respiratory: Normal respirations, no respiratory distress appreciated Skin: General appearance color normal 10:09 Back: pain, that is moderate, of the low back area and left low back, ROM is painful, with all movement, CVA tenderness, is absent, Straight leg raises: of both lower extremities does not illicit pain. 10:09 Neuro: Orientation: is normal, Mentation: is normal, Memory: is normal, Motor: is normal, Sensation: is normal, Gait: limited by pain. Vital Signs: 09:31 BP 139 / 87; Pulse 90; Resp 17 S; Temp 97.5(O); Pulse Ox 99% on R/A; Weight 90.72 kg jd3 (R); Height 5 ft. 3 in. (160.02 cm) (R); Pain 5/10; 10:00 BP 131 / 82; Pulse 75; Resp 15; Pulse Ox 97% ; jl7 11:37 BP 133 / 70; Pulse 63; Resp 17; Pulse Ox 99% ; jl7 13:03 BP 138 / 78; Pulse 62; Resp 15; Pulse Ox 98% ; jl7 14:00 BP 141 / 83; Pulse 62; Resp 17; Pulse Ox 98% ; jl7 09:31 Body Mass Index 35.43 (90.72 kg, 160.02 cm) jd3 NIH Stroke Scale Scores: 10:09 NIHSS Score: 0 [facility] Karla Coma Score: 10:09 Eye Response: spontaneous(4). Verbal Response: oriented(5). Motor Response: obeys [facility] commands(6). Total: 15. MDM: 09:54 Patient medically screened. [facility] 10:12 Data reviewed: vital signs, nurses notes, lab test result(s), EKG, radiologic studies, [facility] CT scan, plain films. Data interpreted: aerobics teacher: rate is 90 beats/min, Pulse oximetry: on room air is 99 %. Interpretation: normal. 13:50 Counseling: I had a detailed discussion with the patient and/or guardian regarding: the [facility] historical points, exam findings, and any diagnostic results supporting the discharge/admit diagnosis, lab results, radiology results, the need for outpatient follow up, to return to the emergency department if symptoms worsen or persist or if there are any questions or concerns that arise at home. ED course: Patient is alert and non toxic in appearance in the ED. No neuro deficit appreciated. Imaging studies negative. Patient will follow up with her Neurologist for reevaluation. patient is otherwise given strict return precautions. patient understood and agrees with the plan of care. . 09/21 09:58 Order name: Urine Microscopic Only; Complete Time: 11: [facility] 09/21 10:00 Order name: Basic Metabolic Panel; Complete Time: : [facility] 09/21 10:00 Order name: CBC with Diff; Complete Time: : [facility] 09/21 10:00 Order name: LFT's; Complete Time: 11: [facility] 09/21 10:00 Order name: Magnesium; Complete Time: 11: [facility] 09/21 10:00 Order name: NT PRO-BNP; Complete Time: : [facility] 09/21 10:00 Order name: PT-INR; Complete Time: 11:14 [facility] 09/21 10:00 Order name: Troponin (emerg Dept Use Only); Complete Time: 11: [facility] 09/21 10:00 Order name: XRAY Chest (1 view); Complete Time: 11: [facility] 09/21 10:05 Order name: CT Head Brain wo Cont; Complete Time: 11: [facility] 09/21 10:05 Order name: Lumbar Spine (3 Views) XRAY; Complete Time: 11: [facility] 09/21 10:45 Order name: Urine Dipstick--Ancillary (enter results); Complete Time: 11: 09/21 10:45 Order name: Urine --Ancillary (enter results); Complete Time: 11: 09/21 09:58 Order name: Urine Dipstick-Ancillary (obtain specimen); Complete Time: 10:52 [facility] 09/21 09:58 Order name: Urine Test (obtain specimen); Complete Time: [facility] 09/21 10:00 Order name: EKG; Complete Time: : [facility] 09/21 10:00 Order name: Cardiac monitoring; Complete Time: 11: [facility] 09/21 10:00 Order name: EKG - Nurse/Tech; Complete Time: : [facility] 09/21 10:00 Order name: IV Saline Lock; Complete Time: [facility] 09/21 10:00 Order name: Labs collected and sent; Complete Time: [facility] 09/21 10:00 Order name: O2 Per Protocol; Complete Time: [facility] 09/21 10:00 Order name: O2 Sat Monitoring; Complete Time: [facility] Administered Medications: 11:54 Drug: NS 0.9% 1000 ml Route: IV; Rate: 1 bolus; Site: right forearm; jl7 13:45 Follow up: Response: No adverse reaction; IV Status: Completed infusion; IV Intake: jl7 1000ml Disposition: 16:49 Co-signature as Attending Physician, Hemant Martinez MD I agree with the assessment and kdr plan of care. Disposition: 09/21/20 13:54 Discharged to Home. Impression: Urinary tract infection, site not specified, Superficial injury of head. - Condition is Stable. - Discharge Instructions: Head Injury, Adult, Urinary Tract Infection, Adult. - Prescriptions for Macrobid 100 mg Oral Capsule - take 1 capsule by ORAL route every 12 hours for 7 days; 14 capsule. - Medication Reconciliation Form, Thank You Letter, Antibiotic Education, Prescription Opioid Use form. - Follow up: Yunier Hudson MD; When: 2 - 3 days; Reason: Recheck today's complaints, Continuance of care, Re-evaluation by your physician. NIH Stroke Scale - NIH Stroke Score Date: 09/21/2020 Time: 10:09 Total Score = 0 1a. Level of Consciousness (LOC) - 0(Alert) 1b. Level of Consciousness (LOC) (Year \T\ Age) - 0(Both) 1c. LOC Commands (Open \T\ Closes Eyes/Medical Transcription Radiology) - 0(Both) 2. Best Gaze (Lateral Gaze Paresis) - 0(Normal) 3. Visual Field Loss - 0(No visual loss) 4. Facial Palsy - 0(Normal) 5a. Left Arm: Motor (10-second hold) - 0(No drift) 5b. Right Arm: Motor (10-second hold) - 0(No drift) 6a. Left Leg: Motor (5-second hold - always test supine) - 0(No drift) 6b. Right Leg: Motor (5-second hold - always test supine) - 0(No drift) 7. Limb Ataxia (finger/nose \T\ heel/cisneros - test with eyes open) - 0(Absent) 8. Sensory Loss (pinprick arms/legs/face) - 0(Normal) 9. Best Language: Aphasia (description/naming/reading) - 0(No aphasia) 10. Dysarthria (speech clarity - read or repeat words) - 0(Normal) 11. Extinction and Inattention (visual/tactile/auditory/spatial/personal) - 0(No abnormality) Initials: [facility] Signatures: Dispatcher [employer] EDHemant Mai MD MD kdr Mickail, Joel, PA PA [facility] Sreedhar Garcias RN RN jl7 Jed Sherwood RN RN jd3 Corrections: (The following items were deleted from the chart) 10:07 10:00 Patientreports falling down stairs last Thursday from unknown cause. shirley Family reports a subsequent and immediate fall where she hit her head, convulsed, urinated and vomited on herself. Pt remebers feeling sudden onset of chest pressure and SOB with episode. She denies an previous or similar event. PMHx: Bipolar, fibromyalgia, migraines, HTN. She smokes occa. [facility] 10:12 10:00 Patient reports falling down stairs last Thursday from unknown cause. shirley Family reports a subsequent and immediate fall where she hit her head, convulsed, urinated and vomited on herself. Pt remembers feeling sudden onset of chest pressure and SOB with episode. She denies an previous or similar event. PMHx: Bipolar, fibromyalgia, migraines, HTN. She smokes occasional marijuana, regular cigarettes, denies taking control. [facility] 14:22 13:54 09/21/2020 13:54 Discharged to Home. Impression: Urinary tract infection, jlGail site not specified; Superficial injury of head. Condition is Stable. Forms are Medication Reconciliation Form, Thank You Letter, Antibiotic Education, Prescription Opioid Use. Follow up: Yunier Hudson; When: 2 - 3 days; Reason: Recheck today's complaints, Continuance of care, Re-evaluation by your physician. shirley
[2020-09-21 20:34] VITALS: TEMP 97.5
[2020-09-21 20:37] VITALS: O2SAT 98
[2020-09-21 20:38] VITALS: BP 141/83
== END 2020-09-21 14:22 | disposition home or self-care (01) ==
LOC: ER 09:13
DX: S00.90XA Unspecified superficial injury of unspecified part of head, initial encounter (principal); N39.0 Urinary tract infection, site not specified; F31.9 Bipolar disorder, unspecified; F17.210 Nicotine dependence, cigarettes, uncomplicated; W10.9XXA Fall (on) (from) unspecified stairs and steps, initial encounter; Y92.9 Unspecified place or not applicable; Z88.0 Allergy status to penicillin; Z88.5 Allergy status to narcotic agent; Z91.040 Latex allergy status
CPT/HCPCS: 96361; 93005; 85025; 80048; 36415; 83735; 81025; 85610; 80076; 84484; 83880; 70450; 71045; 72100; 96360; 99285; J7030; 81003; 81015